=== PATIENT | female | born 1940 | race Caucasian/White ===

== ENCOUNTER 2017-10-07 22:32 | Emergency (ER) | payer MEDICARE, OTHER, SELFPAY ==
[2017-10-07 22:39] VITALS: BP 151/65; PULSE 48; RESP 15; TEMP 36.3; O2SAT 99; BMI 26.6
[2017-10-07] MEDS: TET,DIPH,PERTUSS(ACELL),VAC/PF 0.5 ML SYRINGE IM (23:00)
--- NOTE | 2017-10-07 23:50 | ED.SKABFB ---
HPI - Skin/Abscess/Foreign Bdy General Chief complaint: Skin/Abscess/Foreign Body Stated complaint: LEFT HAND LACERATION OF MIDDLE FINGER Time Seen by Provider: 10/07/17 23:50 Source: patient Mode of arrival: ambulatory Limitations: no limitations History of Present Illness HPI narrative: The patient was using a double end trimmer about 4:00 p.m. today. She lacerated her left 3rd finger. She has a burst laceration on the distal volar surface of the 3rd finger. Range of motion the distal fingers intact. There has been some bleeding. There is no swelling or deformity. Sensation is intact. There were no other injuries. She is right-hand dominant. The last tetanus is unknown. Related Data Allergies Allergy/AdvReac Type Severity Reaction Status Date / Time sulfamethoxazole Allergy Rash Verified 10/07/17 22:46 [From Bactrim] trimethoprim [From Bactrim] Allergy Rash Verified 10/07/17 22:46 Review of Systems Constitutional Denies fever(s), Denies lethargy, Denies weakness and Reports other (No other injuries) Musculoskeletal Denies muscle weakness, Denies numbness and Denies tingling Integumentary/Breasts Reports other Neurologic Denies numbness, Denies tingling and Denies weakness [facility] Social History Smoking Status: Never smoker Exam Initial Vital Signs Initial Vital Signs: Vital Signs Temperature 97.3 F L 10/07/17 22:39 Pulse Rate 48 L 10/07/17 22:39 Respiratory Rate 15 10/07/17 22:39 Blood Pressure 151/65 H 10/07/17 22:39 Pulse Oximetry 99 10/07/17 22:39 Const General: cooperative and well developed Nutritional Appearance: well nourished Orientation: alert, awake, oriented x3 and not confused Skin General: no rashes or lesions noted Trauma: laceration (Right 3rd finger 2 cm star-shaped laceration to the distal volar surface.) Neuro General: other (Right fingers are neurovascularly intact) Extrem General: full ROM and other Procedures Laceration Repair Laceration 1: Site: other (Right 3rd finger) Size (cm): 2 Description: stellate Depth: simple, single layer Pre-repair: wound explored and irrigated extensively Skin layer closed with: other (This lesion was closed with Dermabond. The procedure was tolerated well. A bandage was applied.) Course Orders Ordered: Discontinued Medications Diphtheria/Tetanus/Acell Pertussis (Adacel) 0.5 ml IM .ONCE ONE Stop: 10/07/17 22:59 Last Admin: 10/07/17 23:00 Dose: 0.5 ml Vital Signs - 8 hr 10/07/17 22:39 Temperature 97.3 F L Pulse Rate 48 L Respiratory Rate 15 Blood Pressure 151/65 H Pulse Oximetry 99 Discharge Plan Departure Patient Disposition: Home, Self-Care Clinical Impression: Finger laceration Instructions: DI for Laceration Repair -- Finger Activity Restrictions/Additional Instructions: Take Tylenol or Advil as needed for Keep the bandage in place for 3 days. Return here as needed.
--- NOTE | 2017-10-08 00:07 | PC.NURSE ---
poorly approximated star shaped lac to 3rd distal digit pad of lt hand, distal cms intact, bleeding controlled with light pressure
--- NOTE | 2017-10-08 00:14 | ED_ITS ---
HPI - Skin/Abscess/Foreign Bdy General Chief complaint: Skin/Abscess/Foreign Body Stated complaint: LEFT HAND LACERATION OF MIDDLE FINGER Time Seen by Provider: 10/07/17 23:50 Source: patient Mode of arrival: ambulatory Limitations: no limitations History of Present Illness HPI narrative: The patient was using a display trimmer about 4:00 p.m. today. She lacerated her left 3rd finger. She has a burst laceration on the distal volar surface of the 3rd finger. Range of motion the distal fingers intact. There has been some bleeding. There is no swelling or deformity. Sensation is intact. There were no other injuries. She is right-hand dominant. The last tetanus is unknown. Related Data Allergies Allergy/AdvReac Type Severity Reaction Status Date / Time sulfamethoxazole Allergy Rash Verified 10/07/17 22:46 [From Bactrim] trimethoprim [From Bactrim] Allergy Rash Verified 10/07/17 22:46 Review of Systems Constitutional Denies fever(s), Denies lethargy, Denies weakness and Reports other (No other injuries) Musculoskeletal Denies muscle weakness, Denies numbness and Denies tingling Integumentary/Breasts Reports other Neurologic Denies numbness, Denies tingling and Denies weakness [facility] Social History Smoking Status: Never smoker Exam Initial Vital Signs Initial Vital Signs: Vital Signs Temperature 97.3 F L 10/07/17 22:39 Pulse Rate 48 L 10/07/17 22:39 Respiratory Rate 15 10/07/17 22:39 Blood Pressure 151/65 H 10/07/17 22:39 Pulse Oximetry 99 10/07/17 22:39 Const General: cooperative and well developed Nutritional Appearance: well nourished Orientation: alert, awake, oriented x3 and not confused Skin General: no rashes or lesions noted Trauma: laceration (Right 3rd finger 2 cm star-shaped laceration to the distal volar surface.) Neuro General: other (Right fingers are neurovascularly intact) Extrem General: full ROM and other Procedures Laceration Repair Laceration 1: Site: other (Right 3rd finger) Size (cm): 2 Description: stellate Depth: simple, single layer Pre-repair: wound explored and irrigated extensively Skin layer closed with: other (This lesion was closed with Dermabond. The procedure was tolerated well. A bandage was applied.) Course Orders Ordered: Discontinued Medications Diphtheria/Tetanus/Acell Pertussis (Adacel) 0.5 ml IM .ONCE ONE Stop: 10/07/17 22:59 Last Admin: 10/07/17 23:00 Dose: 0.5 ml Vital Signs - 8 hr 10/07/17 22:39 Temperature 97.3 F L Pulse Rate 48 L Respiratory Rate 15 Blood Pressure 151/65 H Pulse Oximetry 99 Discharge Plan Departure Patient Disposition: Home, Self-Care Clinical Impression: Finger laceration Instructions: DI for Laceration Repair -- Finger Activity Restrictions/Additional Instructions: Take Tylenol or Advil as needed for Keep the bandage in place for 3 days. Return here as needed.
== END 2017-10-08 00:27 | disposition home or self-care (01) ==
PROVIDERS: Emergency Provider Emergency Medicine
DX: S61.412A Laceration without foreign body of left hand, initial encounter (principal); W26.9XXA Contact with unspecified sharp object(s), initial encounter
CPT/HCPCS: 12001; 90471; 99282; 90715

== ENCOUNTER 2018-06-16 09:47 | Observation (INO) | payer MEDICARE, OTHER, SELFPAY ==
[2018-06-16] VITALS (11 sets, daily range): BP systolic 143–189; BP diastolic 73–87; PULSE 54–69; RESP 16–20; TEMP 36.4–36.8; O2SAT 97–100; BMI 27.6
--- NOTE | 2018-06-16 10:14 | DI.RAD.S_ITS ---
PROCEDURE: XR CHEST 1V INDICATIONS: dizziness TECHNIQUE: One view of the chest was acquired. COMPARISON: None. FINDINGS: Surgical changes and devices: None. Lungs and pleura: Lungs are clear. No pleural effusions or pneumothorax. Mediastinum: Mediastinal contours appear normal. Heart size is normal. Bones and chest wall: No suspicious bony lesions. Overlying soft tissues appear unremarkable. IMPRESSION: No acute cardiopulmonary disease process. Dictated by: Nithya Woodson MD, PhD on 06/16/2018 at 11:34 Approved by: Nithya Woodson MD, PhD on 06/16/2018 at 11:34
[2018-06-16 10:18] LABS: Add Manual Diff / Slide Review NO; Basophils Absolute Auto 100 /uL (0-100); Basophils Percent Auto 1.3 % (0-2); Eosinophils Absolute Auto 0 /uL (0-450); Eosinophils Percent Auto 0.3 % (2-4); Hematocrit 45.5 % (36-46); Hemoglobin 15.3 g/dL (12.0-16.0); Lymphocytes Absolute Auto 1800 /uL (1100-4500); Lymphocytes Percent Auto 31.9 % (25-40); Mean Corpuscular HGB Conc 33.6 % (30-36); Mean Corpuscular Hemoglobin 30.6 PG (26-34); Monocytes Absolute Auto 300 /uL (0-900); Monocytes Percent Auto 4.7 % (3-14); Neutrophils Absolute Auto 3400 /uL (1500-7000); Neutrophils Percent Auto 61.8 % (50-75); Platelet Count 151 X10^3/uL (150-400); Red Cell Distribution Width 12.9 % (11.6-14.8); White Blood Cell Count 5.6 X10^3/uL (4.5-11.0)
[2018-06-16] MEDS: ONDANSETRON 4 MG/2 ML INJ IV (10:19)
[2018-06-16] MEDS: SODIUM CHLORIDE 0.9% 1,000 ML 1000 ML IV (10:19)
[2018-06-16 10:22] LABS: Alanine Aminotransferase 38 IU/L (9-52); Albumin 4.5 g/dL (3.5-5.0); Albumin Globulin Ratio 1.4 (1.0-2.8); Alkaline Phosphatase 86 U/L (38-126); Aspartate Aminotransferase 36 IU/L (14-36); BUN Creatinine Ratio 15.7 (6-22); Bilirubin Total 0.7 mg/dL (0.2-1.3); Blood Urea Nitrogen 11 mg/dL (7-17); Calcium 9.6 mg/dL (8.4-10.2); Carbon Dioxide 22 mmol/L (22-32); Chloride 106 mmol/L (98-107); Estimated Glomerular Filt Rate > 60.0 mL/min (>60); Globulin 3.2 g/dL (1.7-4.1); Glucose 169 mg/dL (80-110); Potassium 4.6 mmol/L (3.4-5.1); Sodium 138 mmol/L (137-145); Total Protein 7.7 g/dL (6.3-8.2)
[2018-06-16 10:28] LABS: HEMOLYSIS 68 (0-50)
[2018-06-16 10:33] LABS: Troponin I < 0.012 ng/mL (0.01-0.034)
--- NOTE | 2018-06-16 11:06 | DI.CT.S_ITS ---
PROCEDURE: CT HEAD/BRAIN WO CON INDICATIONS: sudden onset vertigo TECHNIQUE: Noncontrast 4.5 mm thick angled axial sections acquired from the foramen magnum to the vertex, with coronal and sagittal reformats. For radiation dose reduction, the following was used: automated exposure control, adjustment of mA and/or kV according to patient size. COMPARISON: None. FINDINGS: Image quality: Excellent. CSF spaces: Basal cisterns are patent. No extra-axial fluid collections. The ventricles are symmetric in size and shape. Brain: No intracranial bleeds or masses. There is cerebral volume loss for age, with resultant ventricular and sulcal prominence. There are periventricular and deep white matter chronic small vessel ischemic changes. There is intracranial internal carotid artery atherosclerosis. Skull and face: Calvarium and visualized facial bones appear intact, without suspicious lesions. Sinuses: Visualized sinuses and mastoids are clear. IMPRESSION: Unremarkable intracranial study for age. Dictated by: Alexander Reese M.D. on 06/16/2018 at 10:27 Approved by: Alexander Reese M.D. on 06/16/2018 at 10:28
--- NOTE | 2018-06-16 11:14 | ED.DIZZY ---
HPI - Dizziness General Chief Complaint: Dizziness Stated Complaint: Dizziness, hx of vertigo Time Seen by Provider: 06/16/18 11:13 Source: patient and other (Friend) Limitations: no limitations History of Present Illness HPI Narrative: This is a 77-year-old female comes to the emergency department with complaint of spinning sensation. Patient states she had similar symptoms a couple years ago but not as intense. Patient states she woke up she is lying flat on her back she was feeling fine and then she started feel like the whole room was spinning. Any kind of movement makes it much worse. Denies any headache, she denies any vision changes, she has had nausea and some dry heaving. She denies any chest pain or shortness of breath. she denies any diarrhea or constipation, she has not had any urinary symptoms. She denies any fevers or cold cough or congestion. No hearing changes. Patient has not been taking senna her blood pressure medications recently. 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 Related Data Home Medications Medication Instructions Recorded Confirmed citalopram 20 mg PO DAILY 06/16/18 06/16/18 metoprolol tartrate 25 mg PO DAILY 06/16/18 06/16/18 pramipexole 0.25 mg PO BEDTIME 06/16/18 06/16/18 rosuvastatin 10 mg PO BEDTIME 06/16/18 06/16/18 Previous Rx's Medication Instructions Recorded meclizine 50 mg PO BID-QID PRN #14 tab 06/16/18 ondansetron HCl [Zofran] 4 mg PO QID PRN #10 tab 06/16/18 Allergies Allergy/AdvReac Type Severity Reaction Status Date / Time sulfamethoxazole Allergy Verified 06/16/18 13:41 [From Bactrim] trimethoprim [From Bactrim] Allergy Verified 06/16/18 13:41 Review of Systems Review of Systems ROS Unobtainable: All systems reviewed & are unremarkable except as noted in HPI and below Constitutional Denies chills, Denies fever(s), Denies frequent falls, Denies headache(s), Denies lethargy and Denies weakness Eyes Denies change in vision and Denies diplopia ENT Ears, Nose, Mouth, and Throat: Denies abnormal hearing, Reports vertigo, Denies ear discharge, Denies otalgia, Denies headache(s) and Denies nasal congestion Cardiovascular Denies chest pain, Reports diaphoresis (when first started.), Denies syncope, Denies rapid heart rate, Denies edema, Denies irregular heart rhythm, Denies lightheadedness, Denies palpitations, Denies dyspnea, Denies dyspnea on exertion and Denies orthopnea Respiratory Denies change in phlegm color, Denies chest congestion, Denies cough, Denies dyspnea, Denies dyspnea on exertion and Denies wheezing Gastrointestinal Gastrointestinal: Denies abdominal pain, Denies change in bowel habits, Denies constipation, Denies diarrhea, Reports nausea and Reports vomiting Genitourinary Denies hematuria, Denies urinary frequency, Denies flank pain, Denies urinary incontinence and Denies urinary urgency Musculoskeletal Denies back pain, Denies numbness and Denies tingling Neurologic Denies abnormal hearing, Denies abnormal speech, Reports vertigo, Denies syncope, Denies frequent falls, Denies headache(s), Denies lack of coordination, Denies focal weakness, Denies numbness, Denies sensory deficit, Denies tingling and Denies weakness Endocrine Denies palpitations Allergic/Immunologic Denies wheezing [facility] Medical History (Updated 06/16/18 @ 13:41 by Odalys Esposito) Dyslipidemia (Chronic) Hypertension (Chronic) RLS (restless legs syndrome) (Chronic) Surgical History (System 06/16/18 @ 13:41 by Odalys Esposito) H/O bilateral mastectomy (Chronic) Social History (System 06/16/18 @ 13:41 by Odalys Esposito) household members: significant other Smoking Status: Never smoker alcohol intake: never substance use type: does not use Social History (System 06/16/18 @ 13:41 by Odalys Esposito) household members: significant other Smoking Status: Never smoker alcohol intake: never substance use type: does not use Exam Narrative Exam Narrative: GEN: well nourished, well appearing female, alert and oriented x 3, patient appears to be in mild distress. HEENT: Atraumatic, pupils are equal round reactive to light, extraocular movements are intact, nares are clear, TMs are clear,, patient has a little bit of fluid behind the ear but no erythema, no bulge, there is no conjunctival pallor. Throat is clear without any exudates, erythema, tonsillar enlargement or uvular deviation, no facial droop. HEART: Regular rate and rhythm without murmur, clicks, rubs. positive pulses upper and lower extremities bilaterally. LUNGS:Lungs clear to auscultation, no wheezes, rales, crackles, chest moves symmetrically ABD:bowel sounds normal, soft, non-tender, no guarding, rebound, rigidity, no masses noted, no hepatosplenomegaly MSCL: Non-tender, no muscle atrophy, muscles strength 5/5 upper and lower extremities, full range of motion NEURO:CN 2-12 intact, sensation normal Initial Vital Signs Initial Vital Signs: Vital Signs Temperature 97.9 F 06/16/18 10:01 Pulse Rate 54 L 06/16/18 10:01 Respiratory Rate 20 06/16/18 10:01 Blood Pressure 183/73 H 06/16/18 10:01 Pulse Oximetry 97 06/16/18 10:01 Scores NIH Stroke Scale Level of Conciousness: Alert, keenly responsive Ask month/age: Answers both questions correctly. Open/close eyes, close hand: Performs both tasks correctly Best gaze horizontal: Normal Visual howe: No visual loss Facial palsy: Normal symetrical movement Left arm drift: No drift for full 10 sec Right arm drift: No drift for full 10 sec Left leg drift: No drift for full 10 sec Right leg drift: No drift for full 10 sec Limb ataxia: Absent Sensory on face/arms/legs: Normal, no sensory loss Best language: No aphasia, normal Dysarthria: Normal Extinction or inattention: No abnormality Total NIH Stroke scale score: 0 Course Orders Ordered: ED Orders 06/16/18 11:06 CT head/brain wo con Stat 06/16/18 14:52 Consult to Physical Therapy Evaluate & Treat 06/16/18 17:55 MR stroke Stat 06/16/18 18:03 Consult to Discharge Planning Routine 06/17/18 05:00 Basic Metabolic Panel Stat Hemoglobin A1C % Stat Lipid Panel w/ VLDL Calc Stat Magnesium Stat Thyroid Stimulating Hormone Stat 06/17/18 06:00 EC echo doppler complete Routine Aspirin (Aspirin Chew) 81 mg PO DAILY LUCY Bisacodyl (Dulcolax) 10 mg PO DAILY PRN PRN Reason: Constipation Heparin Sodium (Porcine) (Heparin) 5,000 unit SUBCUT BID LUCY Hydralazine HCl (Apresoline) 10 mg IV Q6HR PRN PRN Reason: Hypertension Sodium Chloride (Normal Saline 0.9%) 1,000 mls @ 75 mls/hr IV CONT LUCY Last Admin: 06/16/18 19:24 Dose: 75 mls/hr Infusion: 06/16/18 11:23 Dose: 0 mls/hr Admin: 06/16/18 10:19 Dose: 1,000 mls/hr Meclizine HCl (Antivert) 25 mg PO Q6HR PRN PRN Reason: Vertigo Ondansetron HCl (Zofran) 4 mg IV Q4HR PRN PRN Reason: Vertigo Promethazine HCl (Phenergan) 25 mg PO Q6HR PRN PRN Reason: Vertigo Rosuvastatin Calcium (Crestor) 10 mg PO BEDTIME LUCY Discontinued Medications Aspirin (Aspirin Chew) 324 mg PO NOW ONE Stop: 06/16/18 17:59 Last Admin: 06/16/18 19:21 Dose: 324 mg Lorazepam (Ativan) 0.5 mg IV NOW ONE Stop: 06/16/18 11:27 Last Admin: 06/16/18 11:29 Dose: 0.5 mg Meclizine HCl (Antivert) 50 mg PO NOW ONE Stop: 06/16/18 11:18 Last Admin: 06/16/18 11:21 Dose: 50 mg Ondansetron HCl (Zofran) 4 mg IV NOW ONE Stop: 06/16/18 10:19 Last Admin: 06/16/18 10:19 Dose: 4 mg Vital Signs - 8 hr 06/16/18 13:00 06/16/18 15:30 06/16/18 16:30 Temperature 98.2 F Pulse Rate 57 L 59 L 69 Respiratory Rate 16 Blood Pressure 167/77 H Blood Pressure [Left Arm] 166/74 H 143/78 H Pulse Oximetry 97 98 99 MDM - Dizziness Lab Data Attestation: I reviewed the patient's lab results. Result diagrams: 06/16/18 09:55 06/16/18 09:55 Lab Results 06/16/18 06/16/18 Range/Units 09:55 09:55 WBC 5.6 (4.5-11.0) X10^3/uL RBC 5.00 (4.0-5.2) X10^6/uL Hgb 15.3 (12.0-16.0) g/dL Hct 45.5 (36-46) % MCV 91.0 (80-100) fL MCH 30.6 (26-34) PG MCHC 33.6 (30-36) % RDW 12.9 (11.6-14.8) % Plt Count 151 (150-400) X10^3/uL Neut % (Auto) 61.8 (50-75) % Lymph % (Auto) 31.9 (25-40) % [place] % (Auto) 4.7 (3-14) % Eos % (Auto) 0.3 L (2-4) % Baso % (Auto) 1.3 (0-2) % Neut # (Auto) 3400 (7303-8012) /uL Lymph # (Auto) 1800 (9791-9069) /uL [place] # (Auto) 300 (0-900) /uL Eos # (Auto) 0 (0-450) /uL Baso # (Auto) 100 (0-100) /uL Sodium 138 (137-145) mmol/L Potassium 4.6 (3.4-5.1) mmol/L Chloride 106 (98-107) mmol/L Carbon Dioxide 22 (22-32) mmol/L BUN 11 (7-17) mg/dL Creatinine 0.70 (0.52-1.04) mg/dL Estimated GFR > 60.0 (>60) mL/min BUN/Creatinine Ratio 15.7 (6-22) Glucose 169 H (80-110) mg/dL Calcium 9.6 (8.4-10.2) mg/dL Total Bilirubin 0.7 (0.2-1.3) mg/dL AST 36 (14-36) IU/L ALT 38 (9-52) IU/L Alkaline Phosphatase 86 (38-126) U/L Troponin I < 0.012 (0.01-0.034) ng/mL Total Protein 7.7 (6.3-8.2) g/dL Albumin 4.5 (3.5-5.0) g/dL Globulin 3.2 (1.7-4.1) g/dL Albumin/Globulin Ratio 1.4 (1.0-2.8) Point of Care Testing Glucose POC 179 Urine Dip Bedside Urine Glucose Negative Bedside Urine Bilirubin - Negative Bedside Urine Ketone - Negative Urine Specific [place] 1.025 Bedside Urine Occult Blood - Negative Bedside Urine pH 6.5 Bedside Urine Protein - Negative Bedside Urine Urobilinogen - Negative Bedside Urine Nitrite - Negative Bedside Urine Leukocytes - Negative Esterase Imaging Data CT scan - head: Radiologist's impression: [address] [address] [address] Scan Report Signed Patient: Gianna Cedillo#: [id number] : [id number]:[id number] Age/Sex: 77 / FDate of Service: 06/16/18 Loc: ED Accession Number: [id number] Procedure: CT head/brain wo con Ordering Provider: Jennifer Camacho D.O. PROCEDURE: CT HEAD/BRAIN WO CON INDICATIONS: sudden onset vertigo TECHNIQUE: Noncontrast 4.5 mm thick angled axial sections acquired from the foramen magnum to the vertex, with coronal and sagittal reformats. For radiation dose reduction, the following was used: automated exposure control, adjustment of mA and/or kV according to patient size. COMPARISON: None. FINDINGS: Image quality: Excellent. CSF spaces: Basal cisterns are patent. No extra-axial fluid collections. The ventricles are symmetric in size and shape. Brain: No intracranial bleeds or masses. There is cerebral volume loss for age, with resultant ventricular and sulcal prominence. There are periventricular and deep white matter chronic small vessel ischemic changes. There is intracranial internal carotid artery atherosclerosis. Skull and face: Calvarium and visualized facial bones appear intact, without suspicious lesions. Sinuses: Visualized sinuses and mastoids are clear. IMPRESSION: Unremarkable intracranial study for age. Dictated by: Alexander Reese M.D. on 06/16/2018 at 10:27 Approved by: Alexander Reese M.D. on 06/16/2018 at 10:28 Chest x-ray: Radiologist's impression: Gianna Cedillo 77 F [address] [address] XRay Report Signed Patient: Gianna Cedillo#: [id number] : 3Acct:[id number] Age/Sex: 77 / FDate of Service: 06/16/18 Loc: ED Accession Number: [id number] Procedure: XR chest 1V Ordering Provider: Jennifer Camacho D.O. PROCEDURE: XR CHEST 1V INDICATIONS: dizziness TECHNIQUE: One view of the chest was acquired. COMPARISON: None. FINDINGS: Surgical changes and devices: None. Lungs and pleura: Lungs are clear. No pleural effusions or pneumothorax. Mediastinum: Mediastinal contours appear normal. Heart size is normal. Bones and chest wall: No suspicious bony lesions. Overlying soft tissues appear unremarkable. IMPRESSION: No acute cardiopulmonary disease process. Dictated by: Nithya Woodson MD, PhD on 06/16/2018 at 11:34 Approved by: Nithya Woodson MD, PhD on 06/16/2018 at 11:34 ECG Data Attestation: I personally reviewed and interpreted this ECG as follows: Interpretation: Sinus bradycardia rate of 53 P are 172 QRS 86 and QTC of 441. No ST elevation or depression. MDM Narrative Medical decision making narrative: Patient's symptoms are similar to what she has had in the past although these are little bit more intense. Her stroke scale is negative otherwise. Patient does take medication for hypertension as well as dyslipidemia and are less. Patient was given some Zofran which was not very helpful, L of fluids as well as Ativan as she was having some dry heaving. Patient was given meclizine p.o. but she has not actually taken it although she has not been vomiting any more. She states she is still having symptoms. She was urged to try the meclizine as her symptoms will not improve without it most likely. After about an hour after the meclizine, patient has been improving. We did try to stand her up to make sure that she can stand and move safely and she became quite symptomatic again. I discussed the patient does not feel safe at this time. I spoke with Dr. Watson who accepts for observation. Discharge Plan Departure Patient Disposition: Admitted as Observation Clinical Impression: Vertigo Discharge Date/Time: 06/16/18 16:26 Interventions: ED Discharge Assessment Last Done: 06/16/18 16:26 Instructions: DI for Vertigo Additional Instructions: Follow-up with your primary care physician in the next 2-3 days for recheck. If you continue to have symptoms you may wish to follow up with ENT or an ear nose throat specialist. You may continue taking meclizine 1-2 tablets every 6-8 hours as needing for symptoms. Take Zofran 4 mg underneath the tongue every 6 hours as needed for nausea. I would recommend taking this 20 minutes before the meclizine if you're having vomiting or nausea. Return to the emergency department for rapidly worsening symptoms, sudden severe headaches, new vision changes, new weakness, difficulty with speech, numbness difficulty with movement of her extremities or other new or concerning symptoms. Admit Date/Time: 06/16/18 14:27 Admit Provider: Veronica Watson
[2018-06-16] MEDS: MECLIZINE HCL 12.5 MG TABLET 50 MG PO (11:21)
[2018-06-16] MEDS: LORazepam 2 MG/ML SYRINGE 0.5 MG IV (11:29)
--- NOTE | 2018-06-16 12:35 | ED_ITS ---
HPI - Dizziness General Chief Complaint: Dizziness Stated Complaint: Dizziness, hx of vertigo Time Seen by Provider: 06/16/18 11:13 Source: patient and other (Friend) Limitations: no limitations History of Present Illness HPI Narrative: This is a 77-year-old female comes to the emergency department with complaint of spinning sensation. Patient states she had similar symptoms a couple years ago but not as intense. Patient states she woke up she is lying flat on her back she was feeling fine and then she started feel like the whole room was spinning. Any kind of movement makes it much worse. Denies any headache, she denies any vision changes, she has had nausea and some dry heaving. She denies any chest pain or shortness of breath. she denies any diarrhea or constipation, she has not had any urinary symptoms. She denies any fevers or cold cough or congestion. No hearing changes. Patient has not been taking senna her blood pressure medications recently. 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 Related Data Home Medications Medication Instructions Recorded Confirmed citalopram 20 mg PO DAILY 06/16/18 06/16/18 metoprolol tartrate 25 mg PO DAILY 06/16/18 06/16/18 pramipexole 0.25 mg PO BEDTIME 06/16/18 06/16/18 rosuvastatin 10 mg PO BEDTIME 06/16/18 06/16/18 Previous Rx's Medication Instructions Recorded meclizine 50 mg PO BID-QID PRN #14 tab 06/16/18 ondansetron HCl [Zofran] 4 mg PO QID PRN #10 tab 06/16/18 Allergies Allergy/AdvReac Type Severity Reaction Status Date / Time sulfamethoxazole Allergy Verified 06/16/18 13:41 [From Bactrim] trimethoprim [From Bactrim] Allergy Verified 06/16/18 13:41 Review of Systems Review of Systems ROS Unobtainable: All systems reviewed & are unremarkable except as noted in HPI and below Constitutional Denies chills, Denies fever(s), Denies frequent falls, Denies headache(s), Denies lethargy and Denies weakness Eyes Denies change in vision and Denies diplopia ENT Ears, Nose, Mouth, and Throat: Denies abnormal hearing, Reports vertigo, Denies ear discharge, Denies otalgia, Denies headache(s) and Denies nasal congestion Cardiovascular Denies chest pain, Reports diaphoresis (when first started.), Denies syncope, Denies rapid heart rate, Denies edema, Denies irregular heart rhythm, Denies lightheadedness, Denies palpitations, Denies dyspnea, Denies dyspnea on exertion and Denies orthopnea Respiratory Denies change in phlegm color, Denies chest congestion, Denies cough, Denies dyspnea, Denies dyspnea on exertion and Denies wheezing Gastrointestinal Gastrointestinal: Denies abdominal pain, Denies change in bowel habits, Denies constipation, Denies diarrhea, Reports nausea and Reports vomiting Genitourinary Denies hematuria, Denies urinary frequency, Denies flank pain, Denies urinary in continence and Denies urinary urgency Musculoskeletal Denies back pain, Denies numbness and Denies tingling Neurologic Denies abnormal hearing, Denies abnormal speech, Reports vertigo, Denies syncope, Denies frequent falls, Denies headache(s), Denies lack of coordination, Denies focal weakness, Denies numbness, Denies sensory deficit, Denies tingling and Denies weakness Endocrine Denies palpitations Allergic/Immunologic Denies wheezing [facility] Medical History (Updated 06/16/18 @ 13:41 by Odalys Esposito) Dyslipidemia (Chronic) Hypertension (Chronic) RLS (restless legs syndrome) (Chronic) Surgical History (System 06/16/18 @ 13:41 by Odalys Esposito) H/O bilateral mastectomy (Chronic) Social History (System 06/16/18 @ 13:41 by Odalys Esposito) household members: significant other Smoking Status: Never smoker alcohol intake: never substance use type: does not use Social History (System 06/16/18 @ 13:41 by Odalys Esposito) household members: significant other Smoking Status: Never smoker alcohol intake: never substance use type: does not use Exam Narrative Exam Narrative: GEN: well nourished, well appearing female, alert and oriented x 3, patient appears to be in mild distress. HEENT: Atraumatic, pupils are equal round reactive to light, extraocular movements are intact, nares are clear, TMs are clear,, patient has a little bit of fluid behind the ear but no erythema, no bulge, there is no conjunctival pallor. Throat is clear without any exudates, erythema, tonsillar enlargement or uvular deviation, no facial droop. HEART: Regular rate and rhythm without murmur, clicks, rubs. positive pulses upper and lower extremities bilaterally. LUNGS:Lungs clear to auscultation, no wheezes, rales, crackles, chest moves symmetrically ABD:bowel sounds normal, soft, non-tender, no guarding, rebound, rigidity, no masses noted, no hepatosplenomegaly MSCL: Non-tender, no muscle atrophy, muscles strength 5/5 upper and lower extremities, full range of motion NEURO:CN 2-12 intact, sensation normal Initial Vital Signs Initial Vital Signs: Vital Signs Temperature 97.9 F 06/16/18 10:01 Pulse Rate 54 L 06/16/18 10:01 Respiratory Rate 20 06/16/18 10:01 Blood Pressure 183/73 H 06/16/18 10:01 Pulse Oximetry 97 06/16/18 10:01 Scores NIH Stroke Scale Level of Conciousness: Alert, keenly responsive Ask month/age: Answers both questions correctly. Open/close eyes, close hand: Performs both tasks correctly Best gaze horizontal: Normal Visual howe: No visual loss Facial palsy: Normal symetrical movement Left arm drift: No drift for full 10 sec Right arm drift: No drift for full 10 sec Left leg drift: No drift for full 10 sec Right leg drift: No drift for full 10 sec Limb ataxia: Absent Sensory on face/arms/legs: Normal, no sensory loss Best language: No aphasia, normal Dysarthria: Normal Extinction or inattention: No abnormality Total NIH Stroke scale score: 0 Course Orders Ordered: ED Orders 06/16/18 11:06 CT head/brain wo con Stat 06/16/18 14:52 Consult to Physical Therapy Evaluate & Treat 06/16/18 17:55 MR stroke Stat 06/16/18 18:03 Consult to Discharge Planning Routine 06/17/18 05:00 Basic Metabolic Panel Stat Hemoglobin A1C % Stat Lipid Panel w/ VLDL Calc Stat Magnesium Stat Thyroid Stimulating Hormone Stat 06/17/18 06:00 EC echo doppler complete Routine Aspirin (Aspirin Chew) 81 mg PO DAILY LUCY Bisacodyl (Dulcolax) 10 mg PO DAILY PRN PRN Reason: Constipation Heparin Sodium (Porcine) (Heparin) 5,000 unit SUBCUT BID LUCY Hydralazine HCl (Apresoline) 10 mg IV Q6HR PRN PRN Reason: Hypertension Sodium Chloride (Normal Saline 0.9%) 1,000 mls @ 75 mls/hr IV CONT LUCY Last Admin: 06/16/18 19:24 Dose: 75 mls/hr Infusion: 06/16/18 11:23 Dose: 0 mls/hr Admin: 06/16/18 10:19 Dose: 1,000 mls/hr Meclizine HCl (Antivert) 25 mg PO Q6HR PRN PRN Reason: Vertigo Ondansetron HCl (Zofran) 4 mg IV Q4HR PRN PRN Reason: Vertigo Promethazine HCl (Phenergan) 25 mg PO Q6HR PRN PRN Reason: Vertigo Rosuvastatin Calcium (Crestor) 10 mg PO BEDTIME LUCY Discontinued Medications Aspirin (Aspirin Chew) 324 mg PO NOW ONE Stop: 06/16/18 17:59 Last Admin: 06/16/18 19:21 Dose: 324 mg Lorazepam (Ativan) 0.5 mg IV NOW ONE Stop: 06/16/18 11:27 Last Admin: 06/16/18 11:29 Dose: 0.5 mg Meclizine HCl (Antivert) 50 mg PO NOW ONE Stop: 06/16/18 11:18 Last Admin: 06/16/18 11:21 Dose: 50 mg Ondansetron HCl (Zofran) 4 mg IV NOW ONE Stop: 06/16/18 10:19 Last Admin: 06/16/18 10:19 Dose: 4 mg Vital Signs - 8 hr 06/16/18 13:00 06/16/18 15:30 06/16/18 16:30 Temperature 98.2 F Pulse Rate 57 L 59 L 69 Respiratory Rate 16 Blood Pressure 167/77 H Blood Pressure [Left Arm] 166/74 H 143/78 H Pulse Oximetry 97 98 99 MDM - Dizziness Lab Data Attestation: I reviewed the patient's lab results. Result diagrams: 06/16/18 09:55 06/16/18 09:55 Lab Results 06/16/18 06/16/18 Range/Units 09:55 09:55 WBC 5.6 (4.5-11.0) X10^3/uL RBC 5.00 (4.0-5.2) X10^6/uL Hgb 15.3 (12.0-16.0) g/dL Hct 45.5 (36-46) % MCV 91.0 (80-100) fL MCH 30.6 (26-34) PG MCHC 33.6 (30-36) % RDW 12.9 (11.6-14.8) % Plt Count 151 (150-400) X10^3/uL Neut % (Auto) 61.8 (50-75) % Lymph % (Auto) 31.9 (25-40) % [place] % (Auto) 4.7 (3-14) % Eos % (Auto) 0.3 L (2-4) % Baso % (Auto) 1.3 (0-2) % Neut # (Auto) 3400 (2615-0073) /uL Lymph # (Auto) 1800 (3274-3690) /uL Frederick # (Auto) 300 (0-900) /uL Eos # (Auto) 0 (0-450) /uL Baso # (Auto) 100 (0-100) /uL Sodium 138 (137-145) mmol/L Potassium 4.6 (3.4-5.1) mmol/L Chloride 106 (98-107) mmol/L Carbon Dioxide 22 (22-32) mmol/L BUN 11 (7-17) mg/dL Creatinine 0.70 (0.52-1.04) mg/dL Estimated GFR > 60.0 (>60) mL/min BUN/Creatinine Ratio 15.7 (6-22) Glucose 169 H (80-110) mg/dL Calcium 9.6 (8.4-10.2) mg/dL Total Bilirubin 0.7 (0.2-1.3) mg/dL AST 36 (14-36) IU/L ALT 38 (9-52) IU/L Alkaline Phosphatase 86 (38-126) U/L Troponin I < 0.012 (0.01-0.034) ng/mL Total Protein 7.7 (6.3-8.2) g/dL Albumin 4.5 (3.5-5.0) g/dL Globulin 3.2 (1.7-4.1) g/dL Albumin/Globulin Ratio 1.4 (1.0-2.8) Point of Care Testing Glucose POC 179 Urine Dip Bedside Urine Glucose Negative Bedside Urine Bilirubin - Negative Bedside Urine Ketone - Negative Urine Specific [place] 1.025 Bedside Urine Occult Blood - Negative Bedside Urine pH 6.5 Bedside Urine Protein - Negative Bedside Urine Urobilinogen - Negative Bedside Urine Nitrite - Negative Bedside Urine Leukocytes - Negative Esterase Imaging Data CT scan - head: Radiologist's impression: [address] [address] [address] Scan Report Signed Patient: Gianna Cedillo#: [id number] : [id number]:[id number] Age/Sex: 77 / FDate of Service: 06/16/18 Loc: ED Accession Number: [id number] Procedure: CT head/brain wo con Ordering Provider: Jennifer Camacho D.O. PROCEDURE: CT HEAD/BRAIN WO CON INDICATIONS: sudden onset vertigo TECHNIQUE: Noncontrast 4.5 mm thick angled axial sections acquired from the foramen magnum to the vertex, with coronal and sagittal reformats. For radiation dose reduction, the following was used: automated exposure control, adjustment of mA and/or kV according to patient size. COMPARISON: None. FINDINGS: Image quality: Excellent. CSF spaces: Basal cisterns are patent. No extra-axial fluid collections. The ventricles are symmetric in size and shape. Brain: No intracranial bleeds or masses. There is cerebral volume loss for age, with resultant ventricular and sulcal prominence. There are periventricular and deep white matter chronic small vessel ischemic changes. There is intracranial internal carotid artery atherosclerosis. Skull and face: Calvarium and visualized facial bones appear intact, without suspicious lesions. Sinuses: Visualized sinuses and mastoids are clear. IMPRESSION: Unremarkable intracranial study for age. Dictated by: Alexander Reese M.D. on 06/16/2018 at 10:27 Approved by: Alexander Reese M.D. on 06/16/2018 at 10:28 Chest x-ray: Radiologist's impression: Gianna Cedillo 77 F [address] [address] XRay Report Signed Patient: Gianna Cedillo#: [id number] : [id number] Age/Sex: 77 / FDate of Service: 06/16/18 Loc: ED Accession Number: [id number] Procedure: XR chest 1V Ordering Provider: Jennifer Camacho D.O. PROCEDURE: XR CHEST 1V INDICATIONS: dizziness TECHNIQUE: One view of the chest was acquired. COMPARISON: None. FINDINGS: Surgical changes and devices: None. Lungs and pleura: Lungs are clear. No pleural effusions or pneumothorax. Mediastinum: Mediastinal contours appear normal. Heart size is normal. Bones and chest wall: No suspicious bony lesions. Overlying soft tissues appear unremarkable. IMPRESSION: No acute cardiopulmonary disease process. Dictated by: Nithya Woodson MD, PhD on 06/16/2018 at 11:34 Approved by: Nithya Woodson MD, PhD on 06/16/2018 at 11:34 ECG Data Attestation: I personally reviewed and interpreted this ECG as follows: Interpretation: Sinus bradycardia rate of 53 P are 172 QRS 86 and QTC of 441. No ST elevation or depression. MDM Narrative Medical decision making narrative: Patient's symptoms are similar to what she has had in the past although these are little bit more intense. Her stroke scale is negative otherwise. Patient does take medication for hypertension as well as dyslipidemia and are less. Patient was given some Zofran which was not very helpful, L of fluids as well as Ativan as she was having some dry heaving. Patient was given meclizine p.o. but she has not actually taken it although she has not been vomiting any more. She states she is still having symptoms. She was urged to try the meclizine as her symptoms will not improve without it most likely. After about an hour after the meclizine, patient has been improving. We did try to stand her up to make sure that she can stand and move safely and she became quite symptomatic again. I discussed the patient does not feel safe at this time. I spoke with Dr. Watson who accepts for observation. Discharge Plan Departure Patient Disposition: Admitted as Observation Clinical Impression: Vertigo Discharge Date/Time: 06/16/18 16:26 Interventions: ED Discharge Assessment Last Done: 06/16/18 16:26 Instructions: DI for Vertigo Additional Instructions: Follow-up with your primary care physician in the next 2-3 days for recheck. If you continue to have symptoms you may wish to follow up with ENT or an ear nose throat specialist. You may continue taking meclizine 1-2 tablets every 6-8 hours as needing for symptoms. Take Zofran 4 mg underneath the tongue every 6 hours as needed for nausea. I would recommend taking this 20 minutes before the meclizine if you're having vomiting or nausea. Return to the emergency department for rapidly worsening symptoms, sudden severe headaches, new vision changes, new weakness, difficulty with speech, numbness difficulty with movement of her extremities or other new or concerning symptoms. Admit Date/Time: 06/16/18 14:27 Admit Provider: Veronica Watson
--- NOTE | 2018-06-16 13:20 | PC.NURSE ---
HEDDLER TIER attempted to get patient up for ambulation trial. She stated she is unable to tolerate getting up, due to sense of room spinning. HEDDLER TIER reported patient's eyes were demonstrating a possible vestibular nystagmus pattern after attempting to get patient up. Notified provider. No nystagmus noted on assesment.
--- NOTE | 2018-06-16 17:17 | PM.HP.1 ---
History of Present Illness Date Patient Seen: 06/16/18 Time Patient Seen: 17:17 Chief complaint: Dizziness, hx of vertigo Narrative: The patient is a 77-year-old female with PMH of HTN, CAD, HLD, RLS, Patient presented to the ED on 06/16/2018 out of concern for dizziness. Patient woke up this morning at 6:30 a.m. with a profound sense of dizziness while lying in bed. [place] as if her bed was spinning. Dizziness was exacerbated with rotation of the head from [id number] and up and down. She attempted to get up and walk and felt a pulling sensation. Notes difficulty ambulating and an unsteady gait. Associated symptoms included nausea, dry heaving (mostly, does note few projectile episodes), flushing / diaphoresis and palpitations. Denies headache, disorientation, paresthesia or difficulty with speech. She has not experienced a syncopal event. Patient is known to have hearing loss at baseline, reports having a hearing test 2 weeks ago with adjustment in her hearing aids. Denies recent trauma to the head or neck. Denies symptoms of sinus pressure or sinus congestion. No prior history of PE, DVT, or CVA. Patient reports checking her blood pressure at home on occasion with reported SBP in the 160 mmHg range. Patient reports underlying coronary artery disease without prior history of [place]. She has had a cardiac catheterization 3 years ago that revealed 70% stenosis. Patient reports having palpitations most of her life that was treated with 10 or min; however, at some point in the past several years he changed her PCP in the medication was discontinued. Denies experiencing dyspnea at rest and with exertion. Denies fatigue, malaise, and myopathy. Denies prior history of thyroid disease or thyroid abnormalities. Patient relocated from [place] 1 month ago. Previously lived in the area. She has not seen a PCP for the past 3 years. Patient admits to not having taken her medications for at least 1 month because she does not have a provider to prescribe them. She does not have a local PCP. Recently reports experiencing greater amount of stress. Describes feeling overwhelmed by all domestic demands. ED Work-Up EKG, 06/16/2018, 0956 Sinus bradycardia (v-rate 53). Non-specific T-wave abnormality. NC 172 QRS 12 QT 458 / QTc 432 Chest x-ray was unremarkable for acute cardiopulmonary findings. Head CT was unremarkable for an acute intracranial pathology. CBC and BMP stable, without overt abnormalities. Troponin is negative. Glucose is elevated at 169. Patient History Medical History (Updated 06/16/18 @ 20:54 by MATTEO Lincoln) CAD (coronary artery disease) (Acute) Fibrocystic breast disease (Acute) H/O: hysterectomy (Acute) Dyslipidemia (Chronic) Hypertension (Chronic) RLS (restless legs syndrome) (Chronic) Surgical History H/O bilateral mastectomy (Chronic) Social History (System 06/16/18 @ 13:41 by Odalys Esposito) household members: significant other Smoking Status: Never smoker alcohol intake: never substance use type: does not use Family & Social History Family History Mother Colon cancer Father Hypertension CAD (coronary artery disease) Sister CAD (coronary artery disease) Stroke Safety & Behavioral: Feels Safe in Current Yes Environment Been Physically Hurt or No Threatened By a Person Patient lives in her own home. She is functionally independent, denies use of assistive devices. Her grandson lives with her. Patient has 3 sisters and 2 brothers. She has a son that does not live in the area. Tobacco & Substance use: Smoking Status 15 year history of tobacco dependence, half a pack per day, quit 20-25 years ago alcohol intake Denies prior current history of alcohol use Denies recreational drug use Meds Home Medications Medication Instructions Recorded Confirmed Type citalopram 20 mg PO DAILY 06/16/18 06/16/18 History meclizine 50 mg PO BID-QID PRN #14 tab 06/16/18 Rx metoprolol tartrate 25 mg PO DAILY 06/16/18 06/16/18 History ondansetron HCl [Zofran] 4 mg PO QID PRN #10 tab 06/16/18 Rx pramipexole 0.25 mg PO BEDTIME 06/16/18 06/16/18 History rosuvastatin 10 mg PO BEDTIME 06/16/18 06/16/18 History Allergies Allergy/AdvReac Type Severity Reaction Status Date / Time sulfamethoxazole Allergy Verified 06/16/18 13:41 [From Bactrim] trimethoprim [From Bactrim] Allergy Verified 06/16/18 13:41 Review of Systems Review of Systems All systems reviewed & are unremarkable except as noted in HPI and below Exam Vital Signs (past 8 hours): - 06/16/18 10:01 06/16/18 11:00 06/16/18 11:30 Temperature 97.9 F Pulse Rate 54 L 57 L 60 Respiratory Rate 20 Blood Pressure 183/73 H Blood Pressure [Left Arm] 189/85 H 183/83 H Pulse Oximetry 97 100 98 06/16/18 12:00 06/16/18 13:00 06/16/18 15:30 Temperature Pulse Rate 58 L 57 L 59 L Respiratory Rate Blood Pressure Blood Pressure [Left Arm] 176/81 H 166/74 H 143/78 H Pulse Oximetry 97 97 98 06/16/18 16:30 Temperature 98.2 F Pulse Rate 69 Respiratory Rate 16 Blood Pressure 167/77 H Blood Pressure [Left Arm] Pulse Oximetry 99 Oxygen Delivery Method Room Air Oxygen Flow Rate 0 Narrative Exam Narrative: Constitutional: NAD Neurologic: AOx3, no focal neurological deficits, dizziness with rotation of the head No facial asymmetry or unilateral weakness, no facial paresthesia There is some degree of dysmetria with [id number] (right). NIHSS 1 for dysmetria Head: NC, AT Eyes: PERRL, EOMI Ears: external ears normal, hard of hearing Nose: external nose normal, no rhinorrhea or epistaxis Throat: dry MM, oropharynx w/o exudate Neck: no masses, lymphadenopathy, or JVD Chest / Respiratory: equal chest rise, unlabored respiratory effort, no tachypnea, CTAB Heart / CV: S1S2, w/ ectopic beats Abdomen / GI: round, NT, ND, + BS, no organomegaly, no CVA tenderness Peripheral / Vascular: warm to touch, DP and PT pulses palpable, no edema Musc: full ROM of upper and lower extremities, adequate muscle tone and bulk Skin: no ecchymosis or suspicious lesions / ulcers Objective Labs Result Diagrams: 06/16/18 09:55 06/16/18 09:55 Labs: Laboratory Results - last 24 hr 06/16/18 06/16/18 09:55 09:55 WBC 5.6 RBC 5.00 Hgb 15.3 Hct 45.5 MCV 91.0 MCH 30.6 MCHC 33.6 RDW 12.9 Plt Count 151 Neut % (Auto) 61.8 Lymph % (Auto) 31.9 [place] % (Auto) 4.7 Eos % (Auto) 0.3 L Baso % (Auto) 1.3 Neut # (Auto) 3400 Lymph # (Auto) 1800 [place] # (Auto) 300 Eos # (Auto) 0 Baso # (Auto) 100 Sodium 138 Potassium 4.6 Chloride 106 Carbon Dioxide 22 BUN 11 Creatinine 0.70 Estimated GFR > 60.0 BUN/Creatinine Ratio 15.7 Glucose 169 H Calcium 9.6 Total Bilirubin 0.7 AST 36 ALT 38 Alkaline Phosphatase 86 Troponin I < 0.012 Total Protein 7.7 Albumin 4.5 Globulin 3.2 Albumin/Globulin Ratio 1.4 Assessment & Plan Assessment & Plan narrative: Severe Dizziness, acute, present on admission, active 2/2 vertigo vs. posterior CVA - Zofran 4 mg IV Q4H and phenergan 25 mg PO Q6H. If ineffective, then will consider adding 1-2 mg of IV lorazepam prn. - Imaging per MR Stroke to rule out CVA - orthostatic BPs Palpitations, acute, associated symptom of dizziness, active - Telemetry monitoring for 24 hours, then d/c or re-evaluate further need - Noted to have 6 beat SVT run at 1902, resting at time of the event - Check TSH Essential hypertension, chronic condition, present on admission, uncontrolled Previously on metoprolol tartrate 25 mg QD; however, out of the medication for at least 1 month. Unable to refill due to not having a PCP to follow up with. BP on presentation 183/73 mmHg. Improved slightly without particular intervention to range in the 165-170 mmHg (systolic) and 75-85 mmHg (diastolic) - Trend BP - Hold [employer] metoprolol at this time d/t bradycardia. Will plan to restart, however need to monitor her heart rate closely at this time due to dizziness. - Start on losartan 25 mg tonight - Hydralazine 10 mg IV Q6H prn, for SBP > 180 mmHg or DBP > 110 mmHg - Recommended outpatient sleep study (also has RLS) Dehydration, acute, present on admission, active 2/2 GI losses and decreased food and fluid intake - Received 1L NS in ED - Continue IV fluids overnight - I/O monitoring Intractable N&V, acute, present on admission, active - Zofran and phenergan prn (see POC for 'severe dizziness') Atherosclerotic heart disease, chronic, present on admission, active Known coronary stenosis of 70% per prior cardiac catheterization 3 years ago. Associated risk factors include HTN, HLD. Patient is not on aspirin. Denies chest pain and/or ACS like symptoms. Atherosclerosis predisposes patient to coronary ischemia / ICM, which frequently is a forerunner to atrial fibrillation - Give ASA 324 mg today, then continue on 81 mg QD - Risk Stratify: HLD, A1C - Echo Dyslipidemia, chronic, present on admission, active Unknown if chronic condition is controlled. Previously taking rosuvastatin 10 mg QHS; however has been out of this medication. - FLP in am (will need to be NPO at 11 pm) - Resume prior rosuvastatin regimen. LFTs stable. Add CK level. No PCP, present on admission, active - Consult SW to help establishing PCP Patient wishes to be a full code and designates her sister, Bernadette Quezada, as a surrogate decision maker. VTE prophylaxis w/ heparin
--- NOTE | 2018-06-16 17:38 | PT.IPTN ---
Physical Therapy Treatment Note M3 PT-IP Subjective Start: 06/16/18 17:36 Freq: NEEDED Status: Active Protocol: Document 06/16/18 16:00 HH (Rec: 06/16/18 17:38 HH [id number]) Subjective Physical Therapy Visit Type Type Patient Unavailable Notes Pt has not gotten up in AC unit yet at 1600. Reattempt PT tomorrow morning. Possible BPPV based on H&P note.
--- NOTE | 2018-06-16 18:59 | PC.NURSE ---
1630- Pt arrived to roomm 230 from ED via bed. A/O x3, easier for pt to converse with eyes closed r/t dizziness, but reports much better than earlier. No nausea/ vomiting at this time. BP 166/77, hydralizine for SBP>180. Hx HTN. 99%RA, LS clear, denies SOB. R hand NS 75 to be restarted when orders are in, along with ASA 81mg chew NOW. Head CT and CXR both negative. Pt can not tolerate food at this time, but able to drink some fluids. Bed alarm on for safety, call light in reach, pt reports would like to rest.
[2018-06-16] MEDS: ASPIRIN 81 MG TAB 324 MG PO (19:21)
[2018-06-16] MEDS: SODIUM CHLORIDE 0.9% 1,000 ML 75 ML IV (19:24)
[2018-06-16] MEDS: HEPARIN 5,000 UNIT/ML VIAL 5000 UNIT SUBCUT (22:03)
[2018-06-16] MEDS: ROSUVASTATIN 10 MG TABLET PO (22:03)
[2018-06-16 22:23] LABS: Creatine Kinase 49 U/L (30-135)
[2018-06-16] MEDS: LOSARTAN 25 MG TABLET PO (22:46)
[2018-06-17 01:15] VITALS: BP 141/68; PULSE 76; RESP 15; TEMP 36.5; O2SAT 94
--- NOTE | 2018-06-17 01:38 | PC.NURSE ---
Addendum entered by Elena Foley R.N. 06/17/18 06:50: Slept most of shift. No nausea. Used bedpan x 1 with no vertigo but has not been out of bed as yet. Original Note: Patient is alert and oriented. Breath sounds CTA with RA sat of 96%. HRR with 0000 telemetry reading of SR. BP elevated but improved from earlier at 141/68. Denies nausea. BT present and abdomen is soft. Reports chronic episodes of incontinent with no dysuria, frequency or urgency. Has not been out of bed due to vertigo. When lying supine denies dizziness/vertigo but upon sitting up in bed states the room starts to spin but returns to normal after lying down. MATTEO had entered order for NPO status but patient requesting ice cream/Popsicle and states she was given sandwich earlier and tolerated without nausea/vomiting. Lata FELIPE, contacted and order received to start on clear liquids and advance as tolerated. Fall risk score is moderate; bed alarm is activated. Calf SCD's applied as per MD order. Denies pain.
[2018-06-17 04:24] VITALS: BP 141/75; PULSE 60; RESP 16; TEMP 36.7; O2SAT 96
--- NOTE | 2018-06-17 06:00 | DI.ECHO.S_ITS ---
[place] [facility]---------+ [facility] +---------+ : : [address] : : : : [id number] : : : : Phone: [phone]+ Echocardiogram Report + + :Name: SUNDAY CALDWELL Study Date: 06/17/2018 Height: 65 in : :[facility] Exam Location: IS Weight: 166 lb : : Gender: Female BSA: 1.8 m2 : :: 1940 Age: 77 yrs BP: 157/72 mmHg: :Reason For Study: Palpitations : :Ordering Physician: Rajiv : :Hospitalist Performed By: Lala Page : :Referring: LAURA MORALES : + + Interpretation Summary The ejection fraction is estimated to be 60-65%. There are no obvious focal wall motion abnormalities noted but poor endocardial definition reduces the sensitivity for the detection of such. Diastolic parameters suggest a relaxation abnormality of the left ventricle, consistent with probable normal filling pressures. The right ventricle is normal in size and function. Pulmonary artery pressures cannot be estimated because of the lack of a measurable TR jet velocity but the IVC suggests a CVP of around 3 mmHg. No significant valvular abnormalities. -Image quality on parasternal images is poor secondary to presence of breast implants. -But the rest of images are pretty good and don't show a pathology. -There is no prior echocardiogram noted for this patient. Procedure: A two-dimensional transthoracic echocardiogram with color flow and Doppler was performed. The study quality was technically difficult. The patient has had a double mastectomy and implants resulting in poor parasternal images. There is no prior echocardiogram noted for this patient. The patient was in sinus bradycardia with heart rates between 51-56 bpm during the exam. Left Ventricle: The left ventricle is grossly normal size. The ejection fraction is estimated to be 60-65%. There are no obvious focal wall motion abnormalities noted but poor endocardial definition reduces the sensitivity for the detection of such. Diastolic parameters suggest a relaxation abnormality of the left ventricle, consistent with probable normal filling pressures. Right Ventricle: The right ventricle is normal in size and function. Atria: Both atria are normal in size. There is no Doppler evidence for an interatrial shunt. Mitral Valve: The mitral valve is normal in structure and function. There is no mitral valve stenosis. There is trace mitral regurgitation. Aortic Valve: The aortic valve is grossly normal. The aortic valve opens well. There is no hemodynamically significant valvular aortic stenosis. No aortic regurgitation is present. Tricuspid Valve: The tricuspid valve is normal in structure and function. There is a trace or physiologic amount of tricuspid regurgitation. Pulmonary artery pressures cannot be estimated because of the lack of a measurable TR jet velocity but the IVC suggests a CVP of around 3 mmHg. Pulmonic Valve: The pulmonic valve is not well visualized. Great Vessels: The aortic root is normal size. The ascending aorta is mildly enlarged. The pulmonary is not well visualized. The IVC is of normal diameter and collapses greater than 50% with a sniff. This suggests a low right atrial pressure of 3 mm Hg. Pericardium/ Pleura There is no pericardial effusion. There is no pleural effusion. MMode/2D Measurements & Calculations Ao root diam: 3.4 cm LA A2 area: 21.6 cm2 asc Aorta Diam: 3.6 cm LA A4 area: 18.1 cm2 LA length (vol): 6.1 cm LA vol: 54.4 ml LA vol index: 29.8 ml/m2 RA long axis: 5.5 cm RVD1 (basal): 3.2 cm RA area: 17.7 cm2 TAPSE: 1.8 cm RA vol: 48.5 ml RA : 26.5 ml/m2 IVC diam: 1.8 cm Doppler Measurements & Calculations Ao V2 max: 112.4 cm/sec LVOT Max Suresh: 92.3 cm/sec Ao V2 mean: 78.5 cm/sec LV V1 max P.4 mmHg Ao max P.1 mmHg LV V1 VTI: 21.2 cm Ao mean P.7 mmHg sev ratio: 0.81 Ao V2 VTI: 26.1 cm MV E max suresh: 66.6 cm/sec PA V2 max: 44.5 cm/sec MV A max suresh: 93.1 cm/sec PA V2 mean: 28.1 cm/sec MV E/A: 0.72 PA mean P.37 mmHg Med Peak E' Suresh: 4.7 cm/sec PA Accel Time: 0.14 sec E/E' med: 14.1 Lat Peak E' Suresh: 5.8 cm/sec E/E' lat: 11.5 E/e' average: 12.8 MV dec time: 0.25 sec MV P1/2t: 74.6 msec MV P1/2t max suresh: 66.3 cm/sec MVA(P1/2t): 3.0 cm2 Electronically signed by: William Leach M.D. on Reading Physician:06/17/2018 11:23 AM
[2018-06-17 06:24] LABS: BUN Creatinine Ratio 15.7 (6-22); Blood Urea Nitrogen 11 mg/dL (7-17); Calcium 9.2 mg/dL (8.4-10.2); Carbon Dioxide 25 mmol/L (22-32); Chloride 106 mmol/L (98-107); Estimated Glomerular Filt Rate > 60.0 mL/min (>60); Glucose 112 mg/dL (80-110); HEMOLYSIS < 15 (0-50); Potassium 3.6 mmol/L (3.4-5.1); Sodium 138 mmol/L (137-145)
[2018-06-17 06:25] LABS: Cholesterol 184 mg/dL (140-199); HDL Cholesterol 41 mg/dL (40-60); LDL Cholesterol Calculated 115 mg/dL (<100); Magnesium 2.1 mg/dL (1.6-2.3); Triglycerides 139 mg/dL (35-150); VLDL Cholesterol Calculated 28 mg/dL (2-30)
[2018-06-17 06:34] LABS: Hemoglobin A1C% w Est Avg Glu 5.7 % (4.0-6.0)
[2018-06-17 08:00] VITALS: BP 157/72; PULSE 55; RESP 16; TEMP 36.8; O2SAT 96
[2018-06-17] MEDS: SODIUM CHLORIDE 0.9% 1,000 ML 75 ML IV (08:14)
[2018-06-17] MEDS: ASPIRIN 81 MG TAB PO (08:16)
[2018-06-17] MEDS: HEPARIN 5,000 UNIT/ML VIAL 5000 UNIT SUBCUT (08:16)
[2018-06-17] MEDS: MECLIZINE HCL 12.5 MG TABLET 25 MG PO (08:24)
[2018-06-17 09:35] VITALS: BP 139/73; BP 164/82; BP 167/90; PULSE 61; PULSE 62; PULSE 63
--- NOTE | 2018-06-17 12:10 | PT.IIE ---
Surgical History (Last Reviewed 06/16/18 @ 20:54 by MATTEO Lincoln) H/O bilateral mastectomy (Chronic) Medical History (Last Updated 06/16/18 @ 20:54 by MATTEO Lincoln) CAD (coronary artery disease) (Acute) Fibrocystic breast disease (Acute) H/O: hysterectomy (Acute) Dyslipidemia (Chronic) Hypertension (Chronic) RLS (restless legs syndrome) (Chronic) Physical Therapy Inpatient Evaluation/Re-Eval M1 PT/OT-IP Prior Functional Status Start: 06/16/18 17:36 Freq: NEEDED Status: Active Protocol: Document 06/17/18 09:45 AMB (Rec: 06/17/18 12:10 AMB [id number]) Medical Review Prior Functional Status Medical History Reviewed Yes Mobility and Gait Independent in the community without assistive device Activities of Daily Living and IADL's Previously driving Social History Household Members significant other Living Arrangements House Number of Floors (Floors) One Floor Number of Stairs To Enter/Railing? stairs to enter, but can walk up the driveway to avoid stairs Employment Status Retired Additional Social History Comment Grandson currently living with her between girlfriends but works. Has a friends staying with her for a week. M2 PT-IP Current Condition Start: 06/16/18 17:36 Freq: NEEDED Status: Active Protocol: Document 06/17/18 09:45 AMB (Rec: 06/17/18 12:10 AMB [email or web address]) Physical Therapy Current Condition Current Condition Evaluation Date 06/17/18 Treatment Diagnosis dizziness Onset Date 06/16/18 M3 PT-IP Subjective Start: 06/16/18 17:36 Freq: NEEDED Status: Active Protocol: Document 06/17/18 09:45 AMB (Rec: 06/17/18 12:10 AMB [email or web address]) Subjective Physical Therapy Visit Type Type Initial Evaluation Visit Start Time 09:50 Visit Stop Time 10:25 Total Visit Minutes 35 Number of FOLDING MACHINE OPERATOR Visits 0 Physical Therapy Visit Comments Patient Comments Pt just got up to the commode with nursing and it went ok. Going to have an MRI later this morning, but willing to look into the dizziness. Does report a history of BPPV 6 years ago, but feels this is much worse. M4 PT-IP Mobility and Gait Start: 06/16/18 17:36 Freq: NEEDED Status: Active Protocol: Document 06/17/18 09:45 AMB (Rec: 06/17/18 12:10 AMB [email or web address]) PT-Bed Mobility Assessment Supine to Sit Supine to Sit Independent Sit to Supine Sit to Supine Independent Scooting Scooting to Edge of Bed Standby Assistance Gait Assessment Comments Gait Comments Did not assess PT-Balance Assessment Sitting Balance and Reactions Static Sitting Balance Ability Good Dynamic Sitting Balance Ability Fair M5 PT-IP Objective Assessments Start: 06/16/18 17:36 Freq: NEEDED Status: Active Protocol: Document 06/17/18 09:45 AMB (Rec: 06/17/18 12:10 AMB [email or web address]) Orientation Orientation/Cognition Level of Alertness Alert Strength Upper Extremity Strength Assessment Within Functional Limits Lower Extremity Strength Assessment Within Functional Limits M7 PT-IP Assessment and Plan Start: 06/16/18 17:36 Freq: NEEDED Status: Active Protocol: Document 06/17/18 09:45 AMB (Rec: 06/17/18 12:10 AMB [email or web address]) PT Summary Assessment and Plan Potential Rehabilitation Potential Good Status of Condition at Evaluation Evolving Summary Impairments Balance Bed Mobility Transfers Gait Activity Tolerance Assessment Summary Amelia reports 24 hour history of acute onset dizziness. Feels like things are better, as long as she doesn't move. Today she did not have rotatory nystagmus with [place]-Hall[place]. She did have horizontal nystagmus with supine roll test, stronger on the right, geotropic. Performed Gufoni maneuver, pt with nystagmus and subjectively dizzy in 1st position. Going to get an MRI , so will be having to lie flat about 5 min after maneuver. If MRI does not show any cerebellar involvement would be confident in horizontal BPPV. If MRI comes back clear, PT can return in the afternoon for further vestibular assessment. Pt, if BPPV is confirmed should be able to go home with her friend, but would probably want a walker for safety for the first few days. Would recommend outpatient PT for full vestibular recovery. Goals Bed Mobility Goal Independent Transfer Goal Independent Gait Goal Standby Assistance Front Wheel Walker Gait Distance 500 Days to Meet Goals 2 Frequency of Treatment Frequency Of Treatment Twice a Day Treatment Plan Other Recommendations and Next Treatment Gufoni vs BBQ roll. Assess Focus gait and safety for d/c home. Recommendations To Nursing Amount of Assist Needed 1 Person Assist Discharge Recommendations PT Discharge Recommendations Home with Assistance Other Discharge Recommendations outpatient referral needed (pt does not have a PCP yet) Equipment Needed for Home Before possibly FWW Discharge
[2018-06-17 13:00] VITALS: O2SAT 96
--- NOTE | 2018-06-17 14:35 | OT.IP.EVAL ---
Past Medical History (Last Updated 06/16/18 @ 20:54 by MATTEO Lincoln) CAD (coronary artery disease) (Acute) Fibrocystic breast disease (Acute) H/O: hysterectomy (Acute) Dyslipidemia (Chronic) Hypertension (Chronic) RLS (restless legs syndrome) (Chronic) Surgical History (Last Reviewed 06/16/18 @ 20:54 by MATTEO Lincoln) H/O bilateral mastectomy (Chronic) Occupational Therapy Inpatient Evaluation/Re-Eval M1 PT/OT-IP Prior Functional Status Start: 06/16/18 17:36 Freq: NEEDED Status: Active Protocol: Document 06/17/18 14:35 LONNY (Rec: 06/17/18 14:53 LONNY [id number]) Medical Review Prior Functional Status Medical History Reviewed Yes Diet/Fluid Consistency Regular Communication WNL Mobility and Gait Independent in the community without assistive device Activities of Daily Living and IADL's Independent with all self care , IADLS, driving Social History Household Members family Living Arrangements House Number of Floors (Floors) One Floor Number of Stairs To Enter/Railing? 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 Pt has S.O. staying with her for a week. He normally lives in [place]. M2 OT-IP Current Condition Start: 06/17/18 14:39 Freq: Status: Active Protocol: Document 06/17/18 14:35 PJHeidi (Rec: 06/17/18 14:53 KONG [id number]) Occupational Therapy Current Condition Current Condition Evaluation Date 06/17/18 Treatment Diagnosis assess self care for return home with BPPV, dizziness Diagnosis Onset Date 06/16/18 Post Operative Precautions Other Precautions dizziness, avoid sudden head movements M3 OT- IP Subjective and Pain Start: 06/17/18 14:39 Freq: Status: Active Protocol: Document 06/17/18 14:35 PJHeidi (Rec: 06/17/18 14:53 KONG [id number]) OT- Subjective Occupational Therapy Visit Type Type Initial Evaluation Visit Start Time 14:17 Visit Stop Time 14:35 Notes Pt's s.o. observing this session. Occupational Therapy Visit Comments Patient Comments I am feeling better now. I don't really feel too dizzy. Patient/Caregiver Goals to go home today OT Pain Assessment Pain When Pain Assessed After Treatment Pain Present Pain Present Denied Pain M4 OT- IP ADL's Start: 06/17/18 14:39 Freq: Status: Active Protocol: Document 06/17/18 14:35 PJM (Rec: 06/17/18 14:53 PJ [id number]) OT [id number]-[id number]-Xkcywao General Evaluation Self-Feeding Ability Independent OT ADL-Grooming General Evaluation Grooming Ability Independent OT ADL-Oral Care General Eval Oral Care Ability Independent OT ADL-Dressing General Eval Upper Body Dressing Ability Independent Lower Body Dressing Ability Independent Comments OT Dressing Comments provided education re: body mechanics to avoid bending forward OT ADL-Toileting General Evaluation Toileting Ability Independent OT ADL-Bathing Bathing Type Bathing Type Shower Comments OT Bathing Comments Pt plans to stand to shower in small shower stall. Provided education re: bathroom safety equipt options. She plans to use small shower stool for seated hair washing for increased safety. M5 OT- IP IADL's Start: 06/17/18 14:39 Freq: Status: Active Protocol: Document 06/17/18 14:35 PJM (Rec: 06/17/18 14:53 [facility] [id number]) OT-Instrumental Activities of Daily Living Deficits IADL Deficits Identified Deficits Home Safety Awareness Awareness of Need for Assistance at Home Good Awareness Ability to Problem Solve Emergency Able to Problem Solve Situations Home Safety Comments Provided education re: use of automotive production worker for retrieving items from floor and rearranging commonly used items to avoid forward bending. Medication Management Medication Management No Deficits Identified Money Management Money Management No Deficits Identified Meal Preparation Meal Preparation No Deficits Identified Auto Parts Professional Auto Parts Professional No Deficits Identified Auto Parts Professional Comments Pt will use automotive production worker to remove clothes from washer and dryer. M6 OT- IP Functional Cognition Start: 06/17/18 14:39 Freq: Status: Active Protocol: Document 06/17/18 14:35 PJM (Rec: 06/17/18 14:53 PJ [id number]) Cognitive Factors Limiting Selfcare Function Cognitive Ability Level of Alertness Alert Patient Orientation Name Age Birthday Month Date Year Day of Week Place Situation Attention Span Ability Capable of Focused Attention Capable of Sustained Attention Ability to Follow Commands Able to Follow One Step Commands Able to Follow Multi-Step Commands Memory Description No Deficits Noted Safety Awareness No Deficits Noted Problem Solving Ability No deficits Noted Executive Function Ability No Deficits Noted Abstract Thinking Ability No Deficits Noted Cognitive Comments Cognitive Assessment Comments Pt verbalizes understanding of all education and able to problem solve alternative methods for ADLS/IADLS to avoid bending. Pt initiates moving slowly to avoid increased dizziness. OT- Vision and Hearing OT- Hearing Assessment OT- Hearing Assessment WFL OT- Vision Assessment Visual Acuity WFL M7 OT- IP Mobility and Balance Start: 06/17/18 14:39 Freq: Status: Active Protocol: Document 06/17/18 14:35 PJM (Rec: 06/17/18 14:53 PJM [id number]) OT- Bed Mobility Assessment Rolling Type of Rolling Roll to Right Level of Assistance Independent Supine to Sit Supine to Sit Assist Independent Sit to Supine Sit to Supine Assist Independent Scooting Scooting to Edge of Bed Independent OT-Transfer Assessment Sit to and From Stand Sit to and from Stand Standby Assistance Transfers Transfer Ability Standby Assistance Technique Transfer Destination Toilet Devices Transfer Assistive Devices Front Wheeled Walker OT- Gait Assessment Gait Gait Assistance Required: Standby Assistance Distance (Feet) 20 Assistive Devices Assistive Device Front Wheeled Walker Comments Gait Ability Comments pt states she has been going to bathroom independently with FWW OT- Balance Assessment Sitting Balance and Reactions Static Sitting Balance Ability Good Dynamic Sitting Balance Ability Good Standing Balance and Reactions Static Standing Balance Ability Good Dynamic Standing Balance Ability Good M8 OT- IP Objective Assessments Start: 06/17/18 14:39 Freq: Status: Active Protocol: Document 06/17/18 14:35 PJM (Rec: 06/17/18 14:53 PJM [id number]) OT Gross Range of Motion Upper Extremity Range of Motion Assessment Within Functional Limits OT Strength Upper Extremity Strength Assessment Within Functional Limits Hand Senior Interactive Producer Strength Hand Dominance Right OT- Coordination Assessment Comments Coordination Comments BUE WNL OT-Muscle Tone Assessment Muscle Tone WNL Yes OT Sensation Assessment Comments Summary Comments Pt denies sensory deficits Edema Edema Absent M9 OT- IP Assessment and Plan Start: 06/17/18 14:39 Freq: Status: Active Protocol: Document 06/17/18 14:35 PJM (Rec: 06/17/18 14:53 PJM [id number]) OT Summary Assessment and Plan Potential Rehabilitation Potential Excellent Analytic Complexity at Evaluation Low Summary Assessment Summary Low complexity OT assessment completed on this 77 yr female with dx of BPPV after sudden onset dizziness. MRI negative for stroke. All education completed re: strategies to avoid recurrence of dizziness during self care, IADLS. Pt plans to d/c home today where she will have 24 hr assist for first week then intermittent assist from her grandson who lives with her, but works. No further OT services needed. Frequency of Treatment Frequency Of Treatment Discharge Discharge Recommendations OT Discharge Recommendations Home with Assistance Home Equipment Needs use of shower seat, automotive production worker
--- NOTE | 2018-06-17 14:40 | PT.IPTN ---
Physical Therapy Treatment Note M2 PT-IP Current Condition Start: 06/16/18 17:36 Freq: NEEDED Status: Active Protocol: Document 06/17/18 09:45 AMB (Rec: 06/17/18 12:10 AMB [email or web address]) Physical Therapy Current Condition Current Condition Evaluation Date 06/17/18 Treatment Diagnosis dizziness Onset Date 06/16/18 M3 PT-IP Subjective Start: 06/16/18 17:36 Freq: NEEDED Status: Active Protocol: Document 06/17/18 13:30 AMB (Rec: 06/17/18 14:24 AMB [email or web address]) Subjective Physical Therapy Visit Type Type Treatment Note Visit Start Time 13:30 Visit Stop Time 14:15 Total Visit Minutes 45 Physical Therapy Visit Comments Patient Comments Pt is overall feeling better than this morning 05/11 dizziness M4 PT-IP Mobility and Gait Start: 06/16/18 17:36 Freq: NEEDED Status: Active Protocol: Document 06/17/18 13:30 AMB (Rec: 06/17/18 14:24 AMB [email or web address]) PT-Bed Mobility Assessment Supine to Sit Supine to Sit Independent Sit to Supine Sit to Supine Independent Scooting Scooting to Edge of Bed Independent PT-Transfer Assessment Sit to and From Stand Sit to and from Stand Standby Assistance Equipment Transfer Assistive Device Front Wheeled Walker Transfers Transfer Destination Bed Transfer Ability Level of Assist Standby Assistance Gait Assessment Gait Gait Assistance Required: Contact Guard Assist Distance (Feet) 150 Assistive Devices Assistive Device Front Wheeled Walker M5 PT-IP Objective Assessments Start: 06/16/18 17:36 Freq: NEEDED Status: Active Protocol: Document 06/17/18 09:45 AMB (Rec: 06/17/18 12:10 AMB [email or web address]) Orientation Orientation/Cognition Level of Alertness Alert Strength Upper Extremity Strength Assessment Within Functional Limits Lower Extremity Strength Assessment Within Functional Limits M6 PT-IP Treatment Start: 06/16/18 17:36 Freq: NEEDED Status: Active Protocol: Document 06/17/18 13:30 AMB (Rec: 06/17/18 14:24 AMB [email or web address]) Physical Therapy Treatment Other Treatments Other Treatment Performed Gufoni for R sided horizontal goetropic BPPV x1 M7 PT-IP Assessment and Plan Start: 06/16/18 17:36 Freq: NEEDED Status: Active Protocol: Document 06/17/18 13:30 AMB (Rec: 06/17/18 14:32 AMB [id number]) PT Summary Assessment and Plan Summary Assessment Summary Amelia was feeling better this afternoon. MRI did not show acute stroke findings, and she is relieved about that . Explained that horizontal canal BPPV would cause more nausea vomiting than posterior canal and that could explain her worse symptoms. Repeated Gufoni and less nystagmus and dizziness than this morning, but still had slight nystagmus in 1st position. Would recommend follow up with outpatient vestibular rehab. Pt was able to ambulate safely with FWW for short distances. Frequency of Treatment Frequency Of Treatment Discharge Discharge Recommendations PT Discharge Recommendations Home with Assistance Other Discharge Recommendations outpatient PT referral for vestibular therapy Equipment Needed for Home Before vended FWW Discharge
--- NOTE | 2018-06-17 14:47 | PC.NURSE ---
Follow up appointment for Nguyen is on Saturday at 1:15 pm with [facility]
--- NOTE | 2018-06-17 15:03 | CM.DANOTE ---
DCP/Assessment: Reviewed chart. Patient is a 77yr old female admitted to [facility] under [facility] status for vertigo/dizziness. Primary payor is 1)Medicare 2)Commercial Insurance. Patient seen by therapy and outpatient therapy recommended. Spoke with Dr. Watson whom requests that BISCUIT MACHINE OPERATOR assist in obtaining PCP. Provided Dr. Watson with name/number of [facility] because they have location in [place] as well as [place]. Met with patient and friend/Cole at bedside explained CM/SW role. Patient reports that she resides alone and that her friend Cole will be staying with her until next week. Patient provided with name/number of PCP locations. In addition, patient provided with new patient information packet to complete prior to appointment. Dr. Watson reports appointment made for Saturday06-20-18. Order obtained for [facility] for home use. Therapy distributed. Patient also provided with script to start outpatient physical therapy. Patient plans to go to [facility] [place] in [place]. Patient somewhat new to area and that is why she reports that she does not have PCP. No additional needs identified. P: Home today. PCP resources provided. FREDIS Rosales Discharge Planning/Care Management CM Discharge Assessment Start: 06/17/18 15:01 Freq: Status: Active Protocol: Document 06/17/18 15:01 ANNA (Rec: 06/17/18 15:03 Ariela [id number]) Discharge Planning Assessment Assigned Early Childhood Special Educator FREDIS Rosales Contact Information Bernadette Cleveland (sister) Advance Directives? No History Provided By Patient Friend Medical Record Prior Living Arrangements House Household Members family Type of transporation used prior to Drives own vehicle admit Independent with ADL's Yes Is patient alert and oriented? Yes Caregiver for Another No Patient/Family Preference OP PT Therapy Barriers to Discharge No Transportation Arrangement Friend to provide transport Whiteboard Updated in Patient Room with Yes name and ext. # of Early Childhood Special Educator Review Status In Process Next Review Type Continued Stay Review
--- NOTE | 2018-06-17 15:21 | P.DS_ITS ---
History of Present Illness Date Patient Seen: 06/16/18 Chief complaint: Dizziness, hx of vertigo Narrative: Written by Yaritza FELIPE: The patient is a 77-year-old female with PMH of HTN, CAD, HLD, RLS, Patient presented to the ED on 06/16/2018 out of concern for dizziness. Patient woke up this morning at 6:30 a.m. with a profound sense of dizziness while lying in bed. [place] as if her bed was spinning. Dizziness was exacerbated with rotation of the head from [id number] and up and down. She attempted to get up and walk and felt a pulling sensation. Notes difficulty ambulating and an unsteady gait. Associated symptoms included nausea, dry heaving (mostly, does note few projectile episodes), flushing / diaphoresis and palpitations. Denies headache, disorientation, paresthesia or difficulty with speech. She has not experienced a syncopal event. Patient is known to have hearing loss at baseline, reports having a hearing test 2 weeks ago with adjustment in her hearing aids. Denies recent trauma to the head or neck. Denies symptoms of sinus pressure or sinus congestion. No prior history of PE, DVT, or CVA. Patient reports checking her blood pressure at home on occasion with reported SBP in the 160 mmHg range. Patient reports underlying coronary artery disease without prior history of MA. She has had a cardiac catheterization 3 years ago that revealed 70% stenosis. Patient reports having palpitations most of her life that was treated with 10 or min; however, at some point in the past several years he changed her PCP in the medication was discontinued. Denies experiencing dyspnea at rest and with exertion. Denies fatigue, malaise, and myopathy. Denies prior history of thyroid disease or thyroid abnormalities. Patient relocated from [place] 1 month ago. Previously lived in the area. She has not seen a PCP for the past 3 years. Patient admits to not having taken her medications for at least 1 month because she does not have a provider to prescribe them. She does not have a local PCP. Recently reports experiencing greater amount of stress. Describes feeling overwhelmed by all domestic demands. ED Work-Up EKG, 06/16/2018, 0956 Sinus bradycardia (v-rate 53). Non-specific T-wave abnormality. OH 172 QRS 12 QT 458 / QTc 432 Chest x-ray was unremarkable for acute cardiopulmonary findings. Head CT was unremarkable for an acute intracranial pathology. CBC and BMP stable, without overt abnormalities. Troponin is negative. Glucose is elevated at 169. Discharge Providers Date of admission: 06/16/18 14:27 Discharge Date: 06/17/18 Consults: 06/16/18 14:52 Consult to Physical Therapy Evaluate & Treat Comment: severe vertigo, perform dori maneuver Physician Instructions: Evaluate and Treat 06/16/18 18:03 Consult to Discharge Planning Routine Comment: please set up w/ PCP prior to discharge 06/17/18 09:46 Consult to Occupational Therapy Evaluate & Treat Comment: Physician Instructions: Evaluate and treat 06/17/18 13:55 Consult to Physical Therapy Evaluate & Treat Comment: Physician Instructions: Evaluate and Treat 06/17/18 14:00 Consult to Physical Therapy Evaluate & Treat Comment: FWW for home use Physician Instructions: Evaluate and Treat Discharge provider: Veronica Watson DO Summary Discharge Diagnosis: 1. Acute severe BPPV, present on admission. Resolving. 2. Hypertension, chronic, present on admission. 3. Acute dehydration, present on admission. Resolved. 4. Acute nausea and vomiting, present on admission. Resolved. 5. Coronary artery disease, chronic, present on admission. Stable. 6. Dyslipidemia, chronic, present on admission. Stable. Hospital Course: 1. Acute severe BPPV, present on admission. Resolving. -Patient presented with severe positional dizziness with associated nausea and vomiting. Patient previously episode of vertigo 6 years ago. -Continued Zofran 4 mg IV Q4H and phenergan 25 mg PO Q6H. -TSH normal at 0.60. -MR stroke protocol did not demonstrate any acute intracranial abnormality. Mild volume loss and minimal microvascular ischemic changes. No significant stenosis. Moderate left vertebral artery origin stenosis but completely patent right vertebral artery. -Echocardiogram demonstrated normal RV and LV size and function with EF 60-65%, no obvious focal wall motion abnormalities, normal filling pressures, normal pulmonary pressures and no valvular disease. -Monitored orthostatic blood pressures which did not demonstrate significant orthostasis. -Continue to monitor on telemetry. No ectopy. Admitting provider was incorrect patient never had a run of SVT. -Continued physical therapy and occupational therapy. Provided walker and outpatient prescription for vestibular physical therapy. 2. Hypertension, chronic, present on admission. -Previously on metoprolol tartrate 25 mg daily. Patients medications are packed in a box and she plans to resume when she returns home. -Initial BP on presentation 183/73 mmHg. Improved slightly without particular intervention to range in the 165-170 mmHg (systolic) and 75-85 mmHg (diastolic) -Placed on losartan 25 mg daily. Discontinued at time of discharge as patient believes she is on lisinopril at home and do not want to overlap coverage. -Ordered hydralazine 10 mg IV Q6H prn, for SBP > 180 mmHg or DBP > 110 mmHg -Recommended outpatient sleep study (also has RLS). 3. Acute dehydration, present on admission. Resolved. -Secondary to GI losses and decreased PO intake. -Received 1L NS in ED. Continue IV fluids until adequately hydrated. -Continued to monitor I&O. 4. Acute nausea and vomiting, present on admission. Resolved. -Nausea and vomiting resolved with treatment of vertigo. -Continued Zofran and phenergan as needed. 5. Coronary artery disease, chronic, present on admission. Stable. -Known coronary stenosis of 70% per prior cardiac catheterization 3 years ago. Associated risk factors include HTN and HLD. Patient is not on aspirin. Denies chest pain and/or ACS like symptoms. -Atherosclerosis predisposes patient to coronary ischemia / ICM, which frequently is a forerunner to atrial fibrillation -Received ASA 324 mg. Continued aspirin 81 mg daily. -Risk Stratify: Hemoglobin A1c 5.7% indicative of early prediabetes. Fasting lipid panel demonstrates mildly elevated LDL as below. 6. Dyslipidemia, chronic, present on admission. Stable. -Fasting lipid panel demonstrated: Total cholesterol 184, triglycerides 139, LDL 115, HDL 41. -Continued rosuvastatin 10 mg daily at bedtime. LFTs stable. Recommend increasing statin outpatient. Status at Discharge Functional status at discharge: uses cane/walker Overall status at discharge: patient is progressing back to baseline Exam Vital Signs (past 8 hours): - 06/17/18 08:00 06/17/18 09:35 06/17/18 13:00 Temperature 98.2 F Pulse Rate 55 L Pulse Rate [Orthostatic Lying] 63 Pulse Rate [Orthostatic Sitting] 62 Pulse Rate [Orthostatic Standing] 61 Respiratory Rate 16 Blood Pressure 157/72 H Blood Pressure [Orthostatic Lying] 167/90 H Blood Pressure [Orthostatic Sitting] 164/82 H Blood Pressure [Orthostatic Standing] 139/73 Pulse Oximetry 96 96 Oxygen Delivery Method Room Air Oxygen Flow Rate 0 Narrative Exam Narrative: General: Elderly female sitting in bed and in no acute distress, well- developed, well-nourished, appropriately interactive. HEENT: Normocephalic, atraumatic. External ears without defect. Pupils equal, round, and reactive to light. Anicteric sclerae, moist conjunctivae, and no lid lag. Oropharynx free of erythema and cobble stoning with moist mucosa. Neck: Supple with full range of motion. No jugular venous distension. No bruits. No lymphadenopathy or thyromegaly. Cardiovascular: Regular rate and rhythm without murmurs, rubs, or gallops appreciated. Pulmonary: Clear to auscultation bilaterally without crackles, wheezes, or rhonchi. Normal respiratory effort with no use of accessory muscles. Abdomen: Soft, bowel sounds present, nontender, nondistended. No hepatosplenomegaly or masses appreciated. Extremities: No clubbing, cyanosis, or edema. Skin: Normal temperature, turgor, and texture; no rash, ulcers, or subcutaneous nodules appreciated. Neurological: Cranial nerves grossly intact. Normal muscle strength, tone, and bulk. Reflexes, coordination, and sensory function within normal limits. Mild ataxia with FWW due to dizziness, significantly improved. No nystagmus. Psychiatric: Normal mood and affect. Alert and oriented to person, place, and time. Objective Labs Result Diagrams: 06/16/18 09:55 06/17/18 05:02 Labs: Laboratory Results - last 24 hr 06/16/18 06/17/18 06/17/18 09:55 05:02 05:02 Sodium 138 138 Potassium 4.6 3.6 Chloride 106 106 Carbon Dioxide 22 25 BUN 11 11 Creatinine 0.70 0.70 Estimated GFR > 60.0 > 60.0 BUN/Creatinine Ratio 15.7 15.7 Glucose 169 H 112 H Hemoglobin A1c Calcium 9.6 9.2 Magnesium Total Bilirubin 0.7 AST 36 ALT 38 Alkaline Phosphatase 86 Total Creatine Kinase 49 Troponin I < 0.012 Total Protein 7.7 Albumin 4.5 Globulin 3.2 Albumin/Globulin Ratio 1.4 Triglycerides Cholesterol LDL Cholesterol, Calc VLDL Cholesterol HDL Cholesterol TSH 0.60 06/17/18 06/17/18 06/17/18 05:02 05:02 05:02 Sodium Potassium Chloride Carbon Dioxide BUN Creatinine Estimated GFR BUN/Creatinine Ratio Glucose Hemoglobin A1c 5.7 Calcium Magnesium 2.1 Total Bilirubin AST ALT Alkaline Phosphatase Total Creatine Kinase Troponin I Total Protein Albumin Globulin Albumin/Globulin Ratio Triglycerides 139 Cholesterol 184 LDL Cholesterol, Calc 115 H VLDL Cholesterol 28 HDL Cholesterol 41 TSH Discharge Plan Discharge Plan Patient Disposition: Home Discharge comment: You are being discharged home. Your MRI and echocardiogram did not show any obvious reasons for your vertigo symptoms. This is likely benign positional paroxysmal vertigo or BPPV which is an inner ear problem. Recommend continued physical therapy for vestibular training. You were prescribed meclizine 50 mg 2 to 4 times a day as needed for symptoms. Please continue your medications as prescribed at home. Please follow up at your scheduled appointment. Your follow up appointment is on SaturdayJune 20 at 1:15PM with [facility] in [facility] with Dr. Keanu Worrell Discharge Med Rec/Prescriptions Prescriptions: New ondansetron HCl [Zofran] 4 mg tablet 4 mg PO QID PRN (Reason: nausea and vomiting) Qty: 10 RF: 0 meclizine 25 mg tablet,chewable 50 mg PO BID-QID PRN (Reason: vertigo) Qty: 14 RF: 0 Continued citalopram 20 mg tablet 20 mg PO DAILY RF: 0 pramipexole 0.25 mg tablet 0.25 mg PO BEDTIME RF: 0 rosuvastatin 10 mg tablet 10 mg PO BEDTIME RF: 0 metoprolol tartrate 25 mg tablet 25 mg PO DAILY RF: 0 Follow up/Referrals: Iman Martinez PA-C [Physician] - 06/20/18 1:15 pm (1:15 [place] 06/20/18 ) Provider Discharge Instructions Diet: Low-fat, Low-sodium and Low-cholesterol Activity: Activity as tolerated with forward wheeled walker Visit Report/Discharge Packet Instructions: The DASH Diet, Benign Paroxysmal Positional Vertigo, DI for Vertigo, DI for Benign Paroxysmal Positional Vertigo Visit Report Forms: Congestive Heart Failure, Stroke Signs & Symptoms Discharge Data Attending Provider: Veronica Watson Admit Date/Time: 06/16/18 14:27 Discharges patient from system. Discharge Date/Time: 06/17/18 17:15 Quality VTE Deep Vein Thrombosis/Pulmonary Embolism Present on Admission: No
[2018-06-17 16:00] VITALS: BP 143/64; PULSE 57; RESP 16; TEMP 36.7; O2SAT 95
--- NOTE | 2018-06-17 17:47 | PC.NURSE ---
1700- Pt vss, IV removed, all DC instructions, follow up appt, rx called in to [facility], and belongings with pt. Friend, Cole here to take pt home. [employer] wheelchair pt downstairs to exit. Pt thankful for the great care.
--- NOTE | 2018-06-17 17:55 | DI.MRI.S_ITS ---
PROCEDURE: MR STROKE Pre- and post-contrast brain MRI, non-contrast brain MR angiogram, pre- and postcontrast neck MR angiogram INDICATIONS: dizzinesss, gait imbalance TECHNIQUE: Brain: Noncontrast axial T1 spin echo, axial T2 fast spin echo, sagittal and axial FLAIR, coronal T2 fast spin echo, axial gradient echo, axial diffusion and ADC through the brain. After the administration of contrast, axial 3D VIBE of the cranial vasculature and brain. Brain MRA: Non-contrast 3-D time of flight MR angiogram, with multiple njydphz-iadbcxibm-ivdpjydbfg (MIP) reformats performed. Neck MRA: Axial and sagittal TruFISP through the neck. Coronal dynamic MR angiogram during administration of contrast in the arterial and venous phases, with 3-dimenstional njevklq-xnhalxpto-wnayoubhvi (MIP) reformats constructed from subtraction images. COMPARISON: [facility], CT, CT HEAD/BRAIN WO CON, 06/16/2018, 11:15. FINDINGS: Image quality: Excellent. BRAIN: CSF spaces: Ventricles are normal in size and shape. Basal cisterns are patent. No extra-axial fluid collections. Brain: No intracranial bleeds or mass effects. There is mild diffuse age appropriate volume loss. Minimal degree of patchy high FLAIR signal within the periventricular and subcortical white matter, consistent with small vessel ischemic disease. Bronson-white matter interface is normal. Diffusion weighted images show no acute ischemic insults. Brainstem appears normal. Normal intravascular flow voids are present. No abnormal intracranial enhancement. Skull and face: Calvarial marrow signal is normal. Orbits appear normal. Sinuses: Sinuses and mastoids are clear. BRAIN MR ANGIOGRAM: Anterior circulation: Intracranial internal carotid arteries are normal in size and enhancement. The flow within the paired anterior cerebral arteries is normal and symmetric. The flow within the middle cerebral arteries is normal and symmetric. The anterior communicating artery is seen. No stenoses, occlusions, or aneurysms. Posterior circulation: The visualized portions of the vertebral arteries demonstrate normal caliber, and join to form a normal appearing basilar artery. The flow within the posterior cerebral arteries is normal and symmetric. No stenoses, occlusions, or aneurysms. NECK MR ANGIOGRAM: Carotids: Great vessels demonstrate a conventional anatomy as they arise from the aortic arch. The origins of the common carotid arteries appear patent. The calibers and courses of both common carotid arteries are normal. The bifurcation regions appear normal bilaterally. The internal carotid arteries demonstrate normal course and caliber. Posterior circulation: Moderate left vertebral artery origin stenosis is present. Right vertebral artery origin is patent. More superior portions of both vertebral arteries demonstrate normal course and caliber, and join to form a normal appearing basilar artery. Miscellaneous: Subclavian arteries appear patent. Pre-contrast images through the neck show no soft tissue abnormalities. IMPRESSION: BRAIN MRI: No acute intercranial abnormality. No recent infarct. 2. Mild volume loss. Minimal small vessel ischemic disease. BRAIN MR ANGIOGRAM: Negative cerebral MR angiography. NECK MR ANGIOGRAM: 1. No internal carotid artery stenosis bilaterally. 2. Moderate left vertebral artery origin stenosis. Patent right vertebral artery. Dictated by: Leonel Montez M.D. on 06/17/2018 at 11:37 Approved by: Leonel Montez M.D. on 06/17/2018 at 11:42
== END 2018-06-17 17:15 | disposition home or self-care (01) ==
LOC: ED 12:19 → AC 14:27
PROVIDERS: Nurse Practitioner Gerontology; Admitting Provider Internal Medicine; Emergency Provider Emergency Medicine; Visit Provider Internal Medicine
DX: R42 Dizziness and giddiness (principal); R11.2 Nausea with vomiting, unspecified; I10 Essential (primary) hypertension; G25.81 Restless legs syndrome; E78.5 Hyperlipidemia, unspecified; I25.10 Atherosclerotic heart disease of native coronary artery without angina pectoris; R00.2 Palpitations; E86.0 Dehydration
CPT/HCPCS: 36415; 36591; 70450; 70548; 70553; 71045; 80048; 80053; 80061; 81003; 82550; 82962; 83036; 83735; 84443; 84484; 85025; 93005; 93010; 93306; 96361; 96372; 96374; 96375; 97112; 97116; 97162; 97165; 97530; 99283; 99285; G0378; J1644; J2060; J2405

== ENCOUNTER → 2022-03-15 11:47 | Outpatient (CLI) | payer MEDICARE, OTHER, SELFPAY ==
[2022-03-09 11:11] VITALS: BMI 27.6
[2022-03-15 13:04] LABS: Add Manual Diff / Slide Review NO; Basophils Absolute Auto 0 /uL (0-100); Basophils Percent Auto 0.8 % (0-2); Eosinophils Absolute Auto 0 /uL (0-450); Eosinophils Percent Auto 0.4 % (2-4); Hematocrit 43.3 % (36-46); Hemoglobin 15.1 g/dL (12.0-16.0); Lymphocytes Absolute Auto 1600 /uL (1100-4500); Lymphocytes Percent Auto 31.9 % (25-40); Mean Corpuscular HGB Conc 34.9 % (30-36); Mean Corpuscular Hemoglobin 31.4 PG (26-34); Mean Corpuscular Volume 89.8 fL (80-100); Monocytes Absolute Auto 200 /uL (0-900); Monocytes Percent Auto 4.7 % (3-14); Neutrophils Absolute Auto 3100 /uL (1500-7000); Neutrophils Percent Auto 62.2 % (50-75); Platelet Count 155 X10^3/uL (150-400); Red Blood Cell Count 4.82 X10^6/uL (4.0-5.2); Red Cell Distribution Width 12.6 % (11.6-14.8)
[2022-03-15 13:18] LABS: Hemoglobin A1C% w Est Avg Glu 5.8 % (4.0-6.0)
[2022-03-15 13:38] LABS: HEMOLYSIS < 15 (0-50); Potassium 4.3 mmol/L (3.4-5.1)
[2022-03-15 13:39] LABS: Alanine Aminotransferase 24 IU/L (<35); Albumin 4.5 g/dL (3.5-5.0); Albumin Globulin Ratio 1.4 (1.0-2.8); Alkaline Phosphatase 90 U/L (38-126); Aspartate Aminotransferase 26 IU/L (14-36); BUN Creatinine Ratio 15.9 (6-22); Bilirubin Total 0.5 mg/dL (0.2-1.3); Blood Urea Nitrogen 13 mg/dL (7-17); Calcium 9.6 mg/dL (8.4-10.2); Carbon Dioxide 29 mmol/L (22-32); Chloride 100 mmol/L (98-107); Cholesterol 243 mg/dL (140-199); Estimated Glomerular Filt Rate > 60 mL/min (>60); Globulin 3.2 g/dL (1.7-4.1); Glucose 95 mg/dL (80-110); HDL Cholesterol 49 mg/dL (40-60); LDL Cholesterol Calculated 169 mg/dL (<100); Sodium 138 mmol/L (137-145); Total Protein 7.7 g/dL (6.3-8.2); Triglycerides 127 mg/dL (35-150)
[2022-03-15 14:23] LABS: Vitamin B12 330 pg/mL (239-931)
[2022-03-15 14:44] LABS: TSH w/ Reflex to FT4 0.65 uIU/mL (0.47-4.68)
[2022-03-15 16:09] LABS: Vitamin D 25 Hydroxy (D3) 27.4 ng/mL (30.0-100.0)
== END ==
PROVIDERS: PCP Family Medicine; Referring Provider Family Medicine; Visit Provider Family Medicine
DX: F32.A Depression, unspecified (principal); I10 Essential (primary) hypertension; F41.9 Anxiety disorder, unspecified; R53.1 Weakness; R73.01 Impaired fasting glucose
CPT/HCPCS: 36415; 80053; 80061; 82306; 82607; 83036; 84443; 85025

== ENCOUNTER → 2023-05-20 09:54 | Outpatient (CLI) | payer MEDICARE, OTHER, SELFPAY ==
[2022-03-09 11:11] VITALS: BMI 27.6
[2023-05-20 10:23] LABS: Add Manual Diff / Slide Review NO; Basophils Absolute Auto 100 /uL (0-100); Basophils Percent Auto 1.4 % (0-2); Eosinophils Absolute Auto 0 /uL (0-450); Eosinophils Percent Auto 0.5 % (2-4); Hematocrit 42.8 % (36-46); Lymphocytes Absolute Auto 1700 /uL (1100-4500); Lymphocytes Percent Auto 28.2 % (25-40); Mean Corpuscular Hemoglobin 31.8 PG (26-34); Mean Corpuscular Volume 90.7 fL (80-100); Monocytes Absolute Auto 400 /uL (0-900); Monocytes Percent Auto 6.5 % (3-14); Neutrophils Absolute Auto 3700 /uL (1500-7000); Neutrophils Percent Auto 63.4 % (50-75); Platelet Count 136 X10^3/uL (150-400); Red Blood Cell Count 4.71 X10^6/uL (4.0-5.2); Red Cell Distribution Width 12.5 % (11.6-14.8); White Blood Cell Count 5.9 X10^3/uL (4.5-11.0)
[2023-05-20 10:32] LABS: Hemoglobin A1C% w Est Avg Glu 5.8 % (4.0-6.0)
[2023-05-20 10:47] LABS: Alanine Aminotransferase 17 IU/L (<35); Albumin 4.3 g/dL (3.5-5.0); Albumin Globulin Ratio 1.3 (1.0-2.8); Alkaline Phosphatase 78 U/L (38-126); Aspartate Aminotransferase 24 IU/L (14-36); Bilirubin Total 0.6 mg/dL (0.2-1.3); Blood Urea Nitrogen 16 mg/dL (7-17); Carbon Dioxide 28 mmol/L (22-32); Chloride 107 mmol/L (98-107); Cholesterol 151 mg/dL (140-199); Estimated Glomerular Filt Rate > 60 mL/min (>60); Globulin 3.3 g/dL (1.7-4.1); Glucose 118 mg/dL (80-110); HDL Cholesterol 55 mg/dL (40-60); HEMOLYSIS < 15 (0-50); LDL Cholesterol Calculated 69 mg/dL (<100); Potassium 4.8 mmol/L (3.4-5.1); Sodium 140 mmol/L (137-145); Total Protein 7.6 g/dL (6.3-8.2); Triglycerides 134 mg/dL (35-150)
[2023-05-20 11:22] LABS: Ferritin 110 ng/mL (11-264)
[2023-05-20 12:10] LABS: TSH w/ Reflex to FT4 0.78 uIU/mL (0.47-4.68)
== END ==
PROVIDERS: PCP Family Medicine; Referring Provider Family Medicine; Visit Provider Family Medicine
DX: Z00.00 Encounter for general adult medical examination without abnormal findings (principal); E78.5 Hyperlipidemia, unspecified; R73.01 Impaired fasting glucose; G25.81 Restless legs syndrome; I10 Essential (primary) hypertension; R32 Unspecified urinary incontinence; F41.9 Anxiety disorder, unspecified; R05.3 Chronic cough
CPT/HCPCS: 36415; 80053; 80061; 82728; 83036; 84443; 85025

== ENCOUNTER → 2023-06-12 11:11 | Outpatient (CLI) | payer MEDICARE, OTHER, SELFPAY ==
[2022-03-09 11:11] VITALS: BMI 27.6
== END ==
PROVIDERS: PCP Family Medicine; Referring Provider Family Medicine; Visit Provider Family Medicine
DX: R05.3 Chronic cough (principal); Z87.891 Personal history of nicotine dependence; J98.8 Other specified respiratory disorders
CPT/HCPCS: 94060; 94729

== ENCOUNTER → 2023-06-17 10:16 | Outpatient (CLI) | payer MEDICARE, OTHER, SELFPAY ==
[2022-03-09 11:11] VITALS: BMI 27.6
--- NOTE | 2023-06-17 10:18 | DI.RAD.S_ITS ---
PROCEDURE: XR CHEST 2V INDICATIONS: chronic cough TECHNIQUE: 2 views of the chest were acquired. COMPARISON: [facility], CR, XR CHEST 1V, 06/16/2018, 11:11. FINDINGS: Surgical changes and devices: None. Lungs and pleura: Lungs are clear. No pleural effusions or pneumothorax. Mediastinum: Mediastinal contours are normal. Heart size is normal. Bones and chest wall: No suspicious bony abnormalities. Soft tissues appear unremarkable. IMPRESSION: No acute cardiopulmonary abnormality is seen. Dictated by: Carlton Brumfield M.D. on 06/17/2023 at 12:30 Approved by: Carlton Brumfield M.D. on 06/17/2023 at 12:31
== END ==
PROVIDERS: PCP Family Medicine; Referring Provider Family Medicine; Visit Provider Family Medicine
DX: R05.3 Chronic cough (principal)
CPT/HCPCS: 71046